=== PATIENT | female | born 1945 | race Caucasian/White ===

== ENCOUNTER → 2016-04-13 | Outpatient (REF) | payer MEDICARE, OTHER ==
[~2016-04-13] MED LIST: CALCTAB7 PO; CVS20TAB PO; ELES0.05 OU; EPIP0.3I2 IM; FIBE625T15 PO; MULTTAB PO; OCCUVITE PO; VITA100041 PO
== END ==
LOC: M LAB REF 15:04
PROVIDERS: ATTEND Nurse Practitioner Family
DX: L60.3 Nail dystrophy (principal)

== ENCOUNTER → 2017-02-07 | Outpatient (REF) | payer MEDICARE, OTHER ==
[~2017-02-07] MED LIST changes: +CYCL5TAB PO; -FIBE625T15 PO; +FIBE625T22 PO; +IBUP-1114 PO; +OMEP40CA2 PO; +PERC5TAB12 PO; +VITA-182 PO; -VITA100041 PO; +[UNRECOGNIZED DRUG - OTHER]
[2017-02-07 19:18] LABS: BACTERIA, URINE MOD AMOUNT; HYALINE CAST, URINE NONE SEEN /lpf (0-1); MICROSCOPIC EXAM PERFORMED; SQUAMOUS EPITHELIAL CELL URINE LARGE AMOUNT /hpf (SMALL AMT)
== END ==
LOC: M LAB REF 16:01
PROVIDERS: ATTEND Internal Medicine
DX: R31.9 Hematuria, unspecified (principal)

== ENCOUNTER → 2017-02-14 | Outpatient (REF) | payer OTHER ==
[2017-02-14 20:45] LABS: BACTERIA, URINE NONE SEEN; HYALINE CAST, URINE NONE SEEN /lpf (0-1); RBC, URINE NONE SEEN /hpf (0-3); SQUAMOUS EPITHELIAL CELL URINE SMALL AMOUNT /hpf (SMALL AMT); WBC, URINE 0-1 /hpf (0-3)
[2017-02-14 20:46] LABS: MICROSCOPIC EXAM PERFORMED
== END ==
LOC: M LAB REF 16:27
PROVIDERS: ATTEND Internal Medicine
DX: N39.0 Urinary tract infection, site not specified (principal)

== ENCOUNTER → 2017-05-11 | Outpatient (REF) | payer MEDICARE, OTHER ==
[2017-05-11 14:35] LABS: VITAMIN B12 LEVEL 383 PG/ML
[2017-05-11 14:36] LABS: FOLATE 19.4 NG/ML
== END ==
LOC: M LABNEURO 09:42
DX: E53.8 Deficiency of other specified B group vitamins (principal); E03.9 Hypothyroidism, unspecified
CPT/HCPCS: 82525

== ENCOUNTER → 2017-06-24 | Outpatient (REF) | payer OTHER ==
[2017-06-24 13:21] LABS: APPEARANCE, URINE CLOUDY (CLEAR); BACTERIA, URINE AUTO NEGATIVE (NEGATIVE); BILIRUBIN, URINE AUTO NEGATIVE (NEGATIVE); BLOOD, URINE BLOOD 2+ (NEGATIVE); COLOR, URINE YELLOW (YELLOW); GLUCOSE, URINE (UA) AUTO NEGATIVE (NEGATIVE); KETONE, URINE AUTO NEGATIVE (NEGATIVE); LEUKOCYTE ESTERASE, URINE AUTO NEGATIVE (NEGATIVE); NITRITE, URINE AUTO NEGATIVE (NEGATIVE); PROTEIN, URINE AUTO NEGATIVE (NEGATIVE); RBC, URINE AUTO 2 /HPF (0-3); SPECIFIC GRAVITY URINE AUTO 1.019 (1.002-1.035); SQUAMOUS EPITHELIAL CELL UR AU 11 /HPF (0-6); UROBILINOGEN, URINE AUTO 0.2 mg/dL (0.0-2.0); WBC, URINE AUTO 1 /HPF (0-3)
== END ==
LOC: M LAB REF 12:29
DX: R31.9 Hematuria, unspecified (principal)

== ENCOUNTER → 2017-07-11 | Outpatient (REF) | payer OTHER ==
[2017-07-11 17:49] LABS: ERYTHROCYTE SEDIMENTATION RATE 10 mm/hr (0-30)
[2017-07-11 18:08] LABS: RHEUMATOID FACTOR QUANT < 10.0 IU/ML (<15.0)
[2017-07-11 18:08] LABS: C REACTIVE PROTEIN QUANTITATIV 0.61 MG/DL (0.00-0.30)
[2017-07-14 00:07] LABS: CYCLIC CITRULLINATED PEPTIDE 6 units (0-19)
[2017-07-14 00:07] LABS: ANTINUCLEAR ANTIBODIES DIRECT Negative (Negative)
== END ==
LOC: M LABNEURO 16:55
DX: M25.50 Pain in unspecified joint (principal)
CPT/HCPCS: 86140

== ENCOUNTER → 2019-02-19 | Outpatient (REF) | payer MEDICARE, OTHER ==
[~2019-02-19] MED LIST changes: -CVS20TAB PO; +OMEP20TA9 PO; -OMEP40CA2 PO; +OMEP40CA97 PO
== END ==
LOC: M LAB REF 09:12
PROVIDERS: ATTEND Internal Medicine
DX: R13.10 Dysphagia, unspecified (principal)

== ENCOUNTER → 2019-02-19 | Outpatient (CLI) | payer MEDICARE, OTHER ==
[2019-02-19 19:21] LABS: BASO # 0.1 10^3/uL (0.0-0.2); BASO % 0.7 % (0.0-1.0); EOS # 0.2 10^3/uL (0.0-0.5); EOS % 2.5 % (0.0-3.0); HEMATOCRIT 43.5 % (36.0-47.0); HEMOGLOBIN 14.4 g/dl (12.0-15.5); LYMPH % 36.9 % (24.0-44.0); MEAN CORPUSCULAR HEMOGLOBIN 29.4 pg (27.0-33.0); MEAN CORPUSCULAR HGB CONC 33.1 g/dl (32.0-36.5); MEAN CORPUSCULAR VOLUME 88.8 fl (80.0-96.0); MONO # 0.9 10^3/uL (0.0-0.8); MONO % 10.8 % (0.0-5.0); NEUTROPHILS % 48.9 % (36.0-66.0); PLATELET COUNT, AUTOMATED 231 10^3/uL (150-450); WHITE BLOOD COUNT 8.1 10^3/uL (4.0-10.0)
--- NOTE | 2019-02-19 19:32 | REP ---
Chest x-ray: Two views. History: Dehydration. Pedal edema. No comparison chest x-ray. Findings: The lungs are well inflated and clear. Pleural angles are sharp. Heart is not enlarged. The thoracic aorta is tortuous. There are degenerative changes in the thoracic spine. No significant bony abnormality. There are clips in the right upper quadrant post cholecystectomy. Impression: No acute disease. Electronically Signed by Lamont Mccullough MD 02/19/2019 07:24 P
[2019-02-19 19:42] LABS: ALBUMIN 3.9 GM/DL (3.2-5.2); ALT/SGPT 26 U/L (12-78); BILIRUBIN,TOTAL 0.5 MG/DL (0.2-1.0); BLOOD UREA NITROGEN 13 MG/DL (7-18); C REACTIVE PROTEIN QUANTITATIV 0.71 MG/DL (0.00-0.30); CALCIUM LEVEL 9.1 MG/DL (8.8-10.2); CARBON DIOXIDE LEVEL 28 MEQ/L (21-32); CHLORIDE LEVEL 104 MEQ/L (98-107); CREATININE FOR GFR 0.76 MG/DL (0.55-1.30); GLOMERULAR FILTRATION RATE > 60.0 (>39); GLUCOSE, FASTING 91 MG/DL (70-100); POTASSIUM SERUM 3.7 MEQ/L (3.5-5.1); SODIUM LEVEL 139 MEQ/L (136-145); TOTAL PROTEIN 6.9 GM/DL (6.4-8.2)
[2019-02-19 20:06] LABS: ERYTHROCYTE SEDIMENTATION RATE 12 mm/hr (0-30)
== END ==
LOC: M LAB 17:58
PROVIDERS: ATTEND Physician Assistant Medical
DX: R60.9 Edema, unspecified (principal); E86.0 Dehydration

== ENCOUNTER 2019-03-17 18:41 | Inpatient (IN) | payer MEDICARE, OTHER ==
[~2019-03-17] VITALS: Ht 167.6 cm; Wt 84.3 kg
[~2019-03-17 18:41] MED LIST changes: +methylPREDNISolone INJ 40 MG/1 ML VIAL (J2920) IV SCH
[2019-03-17] MEDS ORDERED: RACEPINEPHrine 2.25 % UD INHA As Ordered ONE (18:44)
[2019-03-17] MEDS ORDERED: methylPREDNISolone INJ 125 MG/2 ML VIAL (J2930) As Ordered ONE (18:46)
[2019-03-17] MEDS ORDERED: methylPREDNISolone INJ 125 MG/2 ML VIAL (J2930) IV ONE (19:00)
[2019-03-17] MEDS ORDERED: RACEPINEPHrine 2.25 % UD INHA NEB ONE (19:00)
[2019-03-17] MEDS ORDERED: IPRATROPIUM 0.5MG/ALBUTEROL 2.5MG INH SOL UD 3ML (DUONEB)(J7620) As Ordered ONE (19:02)
[2019-03-17] MEDS ORDERED: SUCCINYLCHOLINE INJ 200 MG/10 ML VIAL (J0330) IV STA (19:04)
[2019-03-17] MEDS ORDERED: ETOMIDATE INJ 20MG/10ML VIAL IV STA (19:04)
[2019-03-17] MEDS ORDERED: PROPOFOL 1,000 MG/100 ML VIAL As Ordered ONE (19:10)
[2019-03-17] MEDS: PROPOFOL 1,000 MG in IV 1 EA IV SCH ×3 (19:21→23:00)
[2019-03-17 19:54] LABS: ALBUMIN 3.8 GM/DL (3.2-5.2); ALT/SGPT 23 U/L (12-78); BILIRUBIN,DIRECT < 0.1 MG/DL (0.0-0.2); BILIRUBIN,TOTAL 0.3 MG/DL (0.2-1.0); BLOOD UREA NITROGEN 11 MG/DL (7-18); CALCIUM LEVEL 8.6 MG/DL (8.8-10.2); CARBON DIOXIDE LEVEL 24 MEQ/L (21-32); CHLORIDE LEVEL 107 MEQ/L (98-107); CK-MB VALUE MASS 3.2 NG/ML (<3.6); CPK CREATINE PHOSPHOKINASE 126 U/L (26-192); CREATININE FOR GFR 0.86 MG/DL (0.55-1.30); GLOMERULAR FILTRATION RATE > 60.0 (>39); GLUCOSE, FASTING 128 MG/DL (70-100); MB/CK RELATIVE INDEX 2.54 (< OR =4); NT-PRO BNP 41 PG/ML (<125); POTASSIUM SERUM 2.9 MEQ/L (3.5-5.1); SODIUM LEVEL 142 MEQ/L (136-145); TOTAL PROTEIN 6.8 GM/DL (6.4-8.2); TROPONIN I < 0.02 NG/ML (< 0.10)
[2019-03-17 19:54] LABS: HEMATOCRIT 42.1 % (36.0-47.0); MEAN CORPUSCULAR HEMOGLOBIN 29.4 pg (27.0-33.0); MEAN CORPUSCULAR HGB CONC 33.3 g/dl (32.0-36.5); MEAN CORPUSCULAR VOLUME 88.4 fl (80.0-96.0); PLATELET COUNT, AUTOMATED 208 10^3/uL (150-450); RED BLOOD COUNT 4.76 10^6/uL (4.00-5.40)
[2019-03-17] MEDS ORDERED: CYCL5TAB PO (19:55)
[2019-03-17] MEDS ORDERED: FEXO180T58 PO (19:55)
[2019-03-17] MEDS ORDERED: MULT-40 PO (19:55)
[2019-03-17] MEDS ORDERED: FIBE625T PO (19:55)
[2019-03-17] MEDS ORDERED: RANI150C PO (19:55)
[2019-03-17] MEDS ORDERED: OCUVCAP2 PO (19:55)
[2019-03-17] MEDS ORDERED: EPIN1DRO OU (19:55)
[2019-03-17] MEDS ORDERED: SM LTAB5 PO (19:55)
[2019-03-17] MEDS ORDERED: EQL400CA9 PO (19:55)
[2019-03-17] MEDS ORDERED: OXYC1TAB23 PO (19:56)
[2019-03-17] MEDS ORDERED: PATIENT COMMENTS (19:58)
[2019-03-17] MEDS: IPRATROPIUM 0.5MG/ALBUTEROL 2.5MG INH SOL UD 3ML (DUONEB)(J7620) NEB SCH (20:00)
[2019-03-17] MEDS ORDERED: KCL 10MEQ/100ML SWI (KRUN) 10 MEQ in IV 1 EA IV ONE (20:00)
[2019-03-17 20:22] LABS: BASOPHILS 1 % (0-1); EOSINOPHILS 1 % (0-3); LYMPHOCYTES 52 % (16-44); MONOCYTES 8 % (0-5); NEUTROPHILS 38 % (28-66); PLATELET ESTIMATE NORMAL (NORMAL)
--- NOTE | 2019-03-17 20:22 | REPVR ---
PROCEDURE INFORMATION: Exam: XR Chest, 1 View Exam date and time: 03/17/2019 7:39 PM Age: 73 years old Clinical indication: Cough and dyspnea; Additional info: Dyspnea/cough TECHNIQUE: Imaging protocol: XR of the chest Views: 1 view. COMPARISON: CR Chest, 2 view PA, Lat 02/19/2019 7:02 PM FINDINGS: Tubes, catheters and devices: Endotracheal tube at the level of the aortic arch. Lungs: Mild left basilar atelectasis. Lungs are otherwise clear. Pleural space: Unremarkable. No pleural effusion. No pneumothorax. Heart/Mediastinum: Unremarkable. No cardiomegaly. Bones/joints: Unremarkable. IMPRESSION: No acute disease. Electronically signed by: Charan Jacobs On 03/17/2019 20:21:45 PM
[2019-03-17 23:27] VITALS: O2SAT 99
[2019-03-17] MEDS ORDERED: POTASSIUM CHLORIDE 10% LIQ 20 MEQ/15 ML UDC PO ONE (23:45)
[2019-03-17 23:48] VITALS: BP 126/66
[2019-03-17 23:51] VITALS: BP 126/66
[2019-03-18] VITALS (18 sets, daily range): BP systolic 95–148; BP diastolic 52–90; O2SAT 97
[2019-03-18] MEDS ORDERED: KCL 10MEQ/100ML SWI (KRUN) 10 MEQ in IV 1 EA IV SCH ×2
[2019-03-18 00:37] LABS: HEMATOCRIT 41.9 % (36.0-47.0); HEMOGLOBIN 13.5 g/dl (12.0-15.5); MEAN CORPUSCULAR HEMOGLOBIN 28.8 pg (27.0-33.0); MEAN CORPUSCULAR HGB CONC 32.2 g/dl (32.0-36.5); MEAN CORPUSCULAR VOLUME 89.5 fl (80.0-96.0); PLATELET COUNT, AUTOMATED 179 10^3/uL (150-450); RED BLOOD COUNT 4.68 10^6/uL (4.00-5.40); WHITE BLOOD COUNT 9.3 10^3/uL (4.0-10.0)
[2019-03-18 01:01] LABS: CALCIUM LEVEL 8.7 MG/DL (8.8-10.2); CREATININE FOR GFR 1.03 MG/DL (0.55-1.30); GLOMERULAR FILTRATION RATE 55.9 (>39); MAGNESIUM LEVEL 1.9 MG/DL (1.8-2.4); POTASSIUM SERUM 3.5 MEQ/L (3.5-5.1)
[2019-03-18] MEDS: PROPOFOL 1,000 MG in IV 1 EA IV SCH ×3 (01:07→08:21)
[2019-03-18] MEDS: IPRATROPIUM 0.5MG/ALBUTEROL 2.5MG INH SOL UD 3ML (DUONEB)(J7620) NEB SCH ×2 (02:04→08:01)
[2019-03-18 05:08] LABS: HEMATOCRIT 41.8 % (36.0-47.0); HEMOGLOBIN 13.3 g/dl (12.0-15.5); MEAN CORPUSCULAR HEMOGLOBIN 28.5 pg (27.0-33.0); MEAN CORPUSCULAR HGB CONC 31.8 g/dl (32.0-36.5); MEAN CORPUSCULAR VOLUME 89.5 fl (80.0-96.0); PLATELET COUNT, AUTOMATED 181 10^3/uL (150-450); RED BLOOD COUNT 4.67 10^6/uL (4.00-5.40); WHITE BLOOD COUNT 8.8 10^3/uL (4.0-10.0)
[2019-03-18 05:37] LABS: CALCIUM LEVEL 8.9 MG/DL (8.8-10.2); CREATININE FOR GFR 1.01 MG/DL (0.55-1.30); GLOMERULAR FILTRATION RATE 57.2 (>39); POTASSIUM SERUM 4.1 MEQ/L (3.5-5.1)
[2019-03-18 05:44] LABS: ABG pH (ARTERIAL) 7.398 UNITS (7.350-7.450)
[2019-03-18 05:47] LABS: ABG BASE EXCESS -3.3 (-2.0-2.0); ABG HCO3 20.7 MEQ/L (22.0-26.0); ABG O2 SATURATION 98.7 % (95.0-99.0); ABG PARTIAL PRESSURE CO2 34.4 mmHg (35.0-45.0); ABG STANDARD HCO3 21.7 MEQ/L (22.0-26.0); ABG TOTAL CO2 21.8 MEQ/L (23.0-31.0)
[2019-03-18] MEDS ORDERED: methylPREDNISolone INJ 40 MG/1 ML VIAL (J2920) IV SCH (06:00)
--- NOTE | 2019-03-18 06:00 | ECGEPIP ---
[facility] - ED Test Date: 2019-03-17 Pat Name: SARA HERRON Department: Room: - Gender: Female Cattle Sticker: LYSSA : [id number] Requested By: EUGENIO Donato Order Number: [id number] Reading MD: Rafa Cm Measurements Intervals [place] Rate: 101 P: 57 VT: 129 QRS: 53 QRSD: 98 T: 2 QT: 373 QTc: 486 Interpretive Statements SINUS TACHYCARDIA WITH OCCASIONAL SUPRAVENTRICULAR PREMATURE COMPLEXES BASELINE ARTIFACT AFFECTS INTERPRETATION NO PRIORS FOR COMPARISON Electronically Signed on 03-18-2019 6:00:43 EST by Rafa Cm
--- NOTE | 2019-03-18 08:27 | REP ---
Portable chest x-ray: Single view. History: Intubated patient. Comparison study: March 17, 2019. Findings: Endotracheal tube is seen in good position at the level of the transverse aorta. An NG tube enters left upper quadrant. EKG electrodes and oxygen delivery tubing are seen. The lungs are symmetrically aerated and no infiltrate is seen. Pleural angles are sharp. Heart size is normal. Pulmonary vasculature is not increased. Electronically Signed by Lamont Mccullough MD 03/18/2019 08:18 A
[2019-03-18] MEDS: ENOXAPARIN 40 MG/0.4 ML SYRINGE (J1650) SC SCH (08:29)
[2019-03-18] MEDS: PANTOPRAZOLE 40MG INJ (PROTONIX) (C9113) IV SCH (08:29)
[2019-03-18] MEDS ORDERED: CHLORHEXIDINE GLUCONATE 0.12 % 15ML UDC (PERIDEX ORAL RINSE) MT SCH (09:00)
--- NOTE | 2019-03-18 09:54 | HPE ---
DATE OF ADMISSION: 03/17/2019 CHIEF COMPLAINT: Stridor. HISTORY OF PRESENT ILLNESS: Ms. Jimenez is a 73 female who presented to the emergency department (ED) this evening with complaints of difficulty breathing after eating dinner, which was reportedly chicken and rice soup. History is somewhat limited as the patient is intubated and unable to provide the history. History is therefore obtained from the chart and other collateral information. As per ED physician, the patient had eaten dinner with chicken and rice soup and then started noticing shortness of breath and having wheezing and stridor with respiratory distress. She has a history of allergy to peppers but was very clear that she did not ingest any peppers with her dinner. She denied having any rash or any pruritic itching or urticaria. On emergency medical service (EMS) arrival, the patient was given DuoNeb treatment as well as epinephrine intramuscular (IM). In the ED, she was given Solu-Medrol as well as nebulizer treatment and initially appeared to improve. However, she then continued to complain of her throat closing and having she audible stridor and appeared to be in respiratory distress using accessory muscles for respiration. She was therefore intubated. After intubation, the patient was not noted to have any audible wheezing on examination. Also in the reported history, the patient was being evaluated for possible myasthenia gravis. She was unable to articulate clearly who was doing the evaluation or what testing was being done. She had denied any weakness that she noticed leading up to her presentation to the ED. PAST MEDICAL HISTORY: Unknown. PAST SURGICAL HISTORY: Bunionectomy. Cholecystectomy. Hysterectomy. HOME MEDICATIONS LIST: - EpiPen. - omeprazole - calcium carbonate - ibuprofen - FiberCon - vitamin D3 - cyclobenzaprine ALLERGIES: Peppers. SOCIAL HISTORY: Unknown. FAMILY HISTORY: Unknown. PHYSICAL EXAMINATION: Temperature 98.4, pulse 105, respirations 14, blood pressure 141/77, O2 sat 97% on ventilator at 40% FiO2. GENERAL: The patient is intubated and sedated. Appears comfortable. Is arousable to noxious stimuli and following commands intermittently. HEENT: Normocephalic, atraumatic. Pupils are reactive to light bilaterally. Moist mucous membranes. Neck is supple. Trachea is midline. There is no palpable cervical adenopathy. Cardiac: Tachycardiac, regular rate and rhythm. Normal S1, S2. Unable to appreciate any murmurs. Pulmonary: Coarse ventilated breath sounds bilaterally but no wheezing, rales or rhonchi. Abdomen is Soft, nontender, nondistended. No palpable masses. Extremities: No lower extremity edema noted bilaterally. LABS: WBC 11.0, hemoglobin 14.0, platelets 208. Chemistry: Sodium is 142, potassium 2.9, chloride 107, bicarb 24, BUN 11, creatinine 0.86, glucose is 198. ABG on admission: pH 7.411, pCO2 of 42.5, pO2 of 304. Repeat ABG pH 7.366, pCO2 of 43.4, pO2 of 104. Chest x-ray: ET tube in good position. There is mild prominence of interstitial markings. There is atelectasis in the left base. ASSESSMENT/PLAN: Ms. Jimenez is a 73-year-old female with a history of allergies who presented to the ED with acute respiratory distress with audible stridor and wheezing. She was given IM epinephrine by EMS, and in the ED was given racemic epi as well as nebulizer treatment and Solu-Medrol. She did not have significant improvement and was complaining of sensation of her throat closing off and being tight. She continues to have audible stridor and so was intubated in the ED. During intubation, she was not noted to have any edema of her tongue, in her lips or in any laryngeal edema. Post-intubation, she was not noted to have any wheezing in her lungs. 1. Acute respiratory failure with stridor. There was some concern for possible laryngeal edema, initially, however there is no edema noted with intubation. Suspect the patient likely had paradoxical vocal cord dysfunction or paralysis causing her audible stridor which has now resolved with the intubation. - Will continue with Solu-Medrol for now at 40 mg every 8h and continue with DuoNebs. - The patient did not have any hypotension. No desaturation. No rashes or hives. No nausea or vomiting to suggest an anaphylactic response. Her ABG on admission shows no V/Q mismatch and so a severe asthma exacerbation to the point where she would require intubation is unlikely. The patient also has no wheezing noted on exam currently. - Will continue with mechanical ventilation with pressure ventilated volume control (PRVC) with settings of 450/14/40 and 5. - Continue with vent bundle care with head of bed elevation and chlorhexidine mouthwash. - Continue with daily ABGs and chest x-rays while intubated. - Continue with propofol for sedation. Will place a sedation vacation in the a.m. and a weaning trial for extubation. 2. Hypokalemia: Will check magnesium and replete potassium supplements and followup with repeat electrolytes and replete as needed. 3. Myasthenia gravis- hx of probable myasthenia gravis, was awaiting evaluation by neurology. Unclear if her acute respiratory issue is related. Reportedly denied to ED physician any weakness prior to her presentation deep venous thrombosis (DVT) prophylaxis: Lovenox. Gastrointestinal (GI) prophylaxis: Pantoprazole FULL CODE. Total critical care time spent not including procedures approximately 1 hour and 30 minutes. MTDD
[2019-03-18] MEDS ORDERED: IPRATROPIUM 0.5MG/ALBUTEROL 2.5MG INH SOL UD 3ML (DUONEB)(J7620) NEB PRN (13:15)
[2019-03-18] MEDS: PYRIDOSTIGMINE 60 MG TAB PO SCH ×2 (14:46→21:16)
--- NOTE | 2019-03-18 17:36 | IPN ---
DATE: 03/18/2019 Emily was transferred to the hospitalist service by Dr. Strong. I assumed her care today while patient was in the intensive care unit (ICU). She is admitted with stridor, was felt to have laryngeal edema. Intubation was performed in the emergency room. No edema of the upper airway was seen. Stridor was felt to be due to vocal cord spasm. She was intubated overnight. Prior to extubation, she was tested for cuff leak and this also confirmed a presumed lack of any airway edema. Patient is being evaluated for possible myesthesia gravis. Her outpatient provider ordered acetylcholine receptor antibody panel. It did return positive on 02/19/2019 with acetylcholine receptor antibody of 15 and a receptor blocking antibody of 33%. She has an appointment to see Dr. Brown, who is her neurologist, but it is not for several weeks. SURGICAL HISTORY: 1. Cholecystectomy. 2. Hysterectomy. 3. Bunionectomy. 4. Last colonoscopy was 09/2015, sessile serrated polyp removed. PAST MEDICAL HISTORY: Significant for: 1. Degenerative disc disease, apparently has a herniated cervical disc. She is on cyclobenzaprine and oxycodone as an outpatient, as well as ibuprofen. 2. History of gastroesophageal reflux, for which she is on omeprazole and ranitidine. 3. Vitamin D deficiency. PHYSICAL EXAMINATION: 131/90, pulse 90, respiratory rate 20, 100% room air oxygen saturation. Alert and conversant, no distress. Speech is fluent, not particularly dysarthric. No facial droop or weakness. LUNGS: Clear. HEART: Without murmur. ABDOMEN: Soft. Without masses. No peripheral edema. Labs were reviewed. IMPRESSION: Stridor, probably from myesthesia gravis, which is yet to be formally diagnosed, typically does not cause respiratory difficulty due to vocal cord issues. There have been case reports of vocal cord paralysis of unilateral and bilateral in patients with myesthesia gravis. Therefore, it is conceivable her current stridor could be related to this. I will put a consultation in for neurology to see this patient. She is known to their group and has an appointment, but it is not for several weeks, and with the acute event causing intubation, would like to be seen by neurology during this hospitalization. Consultation has been placed with Dr. Shankar.
[2019-03-18] MEDS ORDERED: ETOMIDATE INJ 20MG/10ML VIAL ONE (18:12)
[2019-03-18] MEDS ORDERED: SUCCINYLCHOLINE 100 MG/5 ML SYRINGE (J0330) ONE (18:12)
[2019-03-18] MEDS: methylPREDNISolone INJ 40 MG/1 ML VIAL (J2920) IV SCH (18:37)
[2019-03-19] VITALS (7 sets, daily range): BP systolic 124–163; BP diastolic 60–96
[2019-03-19 04:55] LABS: HEMATOCRIT 41.2 % (36.0-47.0); HEMOGLOBIN 13.3 g/dl (12.0-15.5); MEAN CORPUSCULAR HEMOGLOBIN 28.9 pg (27.0-33.0); MEAN CORPUSCULAR HGB CONC 32.3 g/dl (32.0-36.5); MEAN CORPUSCULAR VOLUME 89.6 fl (80.0-96.0); PLATELET COUNT, AUTOMATED 179 10^3/uL (150-450); WHITE BLOOD COUNT 17.2 10^3/uL (4.0-10.0)
[2019-03-19 05:12] LABS: BLOOD UREA NITROGEN 16 MG/DL (7-18); CALCIUM LEVEL 9.1 MG/DL (8.8-10.2); CARBON DIOXIDE LEVEL 26 MEQ/L (21-32); CHLORIDE LEVEL 110 MEQ/L (98-107); CREATININE FOR GFR 0.68 MG/DL (0.55-1.30); GLOMERULAR FILTRATION RATE > 60.0 (>39); GLUCOSE, FASTING 124 MG/DL (70-100); POTASSIUM SERUM 4.3 MEQ/L (3.5-5.1); SODIUM LEVEL 143 MEQ/L (136-145)
[2019-03-19] MEDS: methylPREDNISolone INJ 40 MG/1 ML VIAL (J2920) IV SCH (06:50)
[2019-03-19] MEDS: PYRIDOSTIGMINE 60 MG TAB PO SCH ×3 (06:50→21:33)
[2019-03-19] MEDS: PANTOPRAZOLE 40MG INJ (PROTONIX) (C9113) IV SCH (08:31)
[2019-03-19] MEDS: ENOXAPARIN 40 MG/0.4 ML SYRINGE (J1650) SC SCH (08:31)
--- NOTE | 2019-03-19 08:56 | CR ---
NEUROLOGY CONSULTATION DATE OF CONSULTATION: 03/19/2019 DATE OF : 1945 REFERRING PROVIDER: Dr. Guevara Ward REASON FOR CONSULTATION: Newly diagnosed myasthenia gravis. Emily Jimenez is a 73-year-old female with a recent diagnosis of myasthenia gravis acetylcholine receptor antibody positive. The patient was having difficulty breathing and having difficulty swallowing. The patient was thought to have had an asthma attack. She was given Solu-Medrol in the ER. The patient then needed to be intubated due to respiratory compromise. The patient ended up being extubated. She was noted to have audible stridor. She has been complaining a few days of dysphagia. Usually occurring more towards the end of the evening. The patient denies any diplopia, but did have one incidence of ptosis. She denies any fatigue with chewing, but states that food does get caught up or in her oral cavity between her gums and her teeth and it takes her a longer time to chew and swallow. The patient denies any weakness in the arms and legs. She will need a chest CT to evaluate for a thymoma. The patient otherwise has already been started on Solu-Medrol. She was given 125 mg IV and then maintained on 40 mg IV Solu-Medrol twice a day. We can go ahead and switch her to prednisone 40 mg daily. The patient has already been started on pyridostigmine 60 mg by mouth three times a day. The patient seems to be tolerating the medicine well so far. She notices an improvement in her tone of her voice, but states she still has some difficulty with her swallowing function. PAST MEDICAL HISTORY: Exercise induced asthma. Cervical spondylosis with chronic cervicalgia. Gastroesophageal reflux disease (GERD). Vitamin D deficiency. PAST SURGICAL HISTORY: Bunionectomy. Cholecystectomy. Hysterectomy. HOME MEDICATIONS: - omeprazole - calcium carbonate - ibuprofen - FiberCon - vitamin D3 - cyclobenzaprine ALLERGIES: Peppers. SOCIAL HISTORY: The patient denies the use of any tobacco, alcohol or illicit drugs. FAMILY HISTORY: Noncontributory. PHYSICAL EXAMINATION: Blood pressure 141/77, pulse rate is 106, respiratory rate is 14, temperature is 98.4 degrees Fahrenheit. Pupils are 3 mm, round and reactive to light. Extraocular movements are intact in all directions without nystagmus. End gaze light diplopia is noted after holding gaze for some time towards horizontal directions. There is no ptosis. There does not appear to be any significant tongue weakness at the present time. Palate elevates symmetrically. Tongue is midline. No weakness of sternocleidomastoids bilaterally. Neck flexion weakness is present, grade 5-. Deltoid and biceps strength are 5/5. Triceps strength is 4+. Iliopsoas strength is 5-. Quadriceps are 5/5, 2+, anterior 5/5. Sensory is intact to light touch in all four extremities with slight decreased light touch in the left toe compared to the right. Deep tendon reflexes are 3's throughout. Absent Babinski signs. Coordination normal finger to nose without any signs of ataxia or dysmetria. Gait deferred. ASSESSMENT: 1. Seropositive acetylcholine receptor myasthenia gravis, rule out thymoma. PLAN: 1. Obtain chest CT with contrast, rule out thymoma. 2. Continue pyridostigmine 60 mg by mouth three times a day. 3. Switch to oral prednisone 40 mg daily. 4. Followup in the [facility] with neurologist Dr. Kristi Brown as scheduled for next Tuesday. 5. Recommend physical therapy/occupational therapy (PT/OT) evaluation.
--- NOTE | 2019-03-19 10:24 | IPN ---
DATE: 03/19/2019 Emily feels significantly improved since starting the Mestinon. She says "I have my tongue control back." She is enunciating better and is swallowing better. She was admitted with stridor, respiratory difficulty. Initially it was felt to be due to angioedema, but appears to have been a vocal cord problem, possibly related to newly diagnosed myasthenia gravis. She was seen yesterday by Dr. Shankar. Appreciate his consultation. He agrees with the diagnosis and recommended a CT scan of the chest to rule out thymoma and advising Mestinon 60 mg three times a day and oral prednisone 40 mg daily. Physical, occupational and speech therapy consulted. Followup with Dr. Brown as an outpatient, which is already scheduled for next Tuesday. PHYSICAL EXAMINATION: Afebrile, vital signs stable. She is alert and conversant in no distress. Speech is clear and fluent. No facial droop or weakness. No fasciculations of the tongue. Lungs clear. Heart regular rhythm. Abdomen soft, nontender. No peripheral edema. Normal strength in the arms and legs. LABORATORIES: White 17,000 on steroids, hemoglobin 13, platelets 179. Sodium 143, potassium 4.3, BUN 16, creatinine 0.6, glucose 214. IMPRESSION: 1. Acute respiratory failure secondary to vocal cord dysfunction, possibly related to myasthenia gravis (there have been case reports of myasthenia gravis causing unilateral or bilateral vocal cord paralysis, which I think is probably what happened to her). She has no respiratory problems now, and I think she can safely be moved to the floor. There is no stridor and her speech is fluent without dyspnea. 2. Myasthenia gravis. Will change to oral prednisone. Continue with Mestinon. Speech therapy has been ordered. Will get a CT scan of the chest with contrast to evaluate for thymoma. I expect the patient can be discharged tomorrow. She has an appointment next Tuesday with Dr. Brown at [facility]. I spent a lot of time discussing myasthenia gravis with the patient and discussed precautions concerning potential for medications to worsen myasthenia gravis or precipitate myasthenia crisis, and the importance of followup with neurology as well as her primary care provider, and directed her towards the [employer] website, which has excellent information for patient's and providers.
[2019-03-19] MEDS ORDERED: ISOVUE-370 76% 100ML VIAL (Q9967) As Ordered ONE (10:39)
[2019-03-19] MEDS ORDERED: KCL 20MEQ in NS 1000ML 1,000 ML IV SCH (11:00)
--- NOTE | 2019-03-19 11:26 | CCN ---
CRITICAL CARE PROGRESS NOTE DATE: 03/18/2019 The patient was seen and examined this morning during bedside rounds. The patient had no events noted overnight. She was on propofol for sedation, which was held this morning for a weaning trial. Off of propofol patient was awake and alert and following commands appropriately. She was placed on a weaning trial on pressure support which she tolerated well. The patient also had a cuff leak checked and she did have appropriate cuff leak and was therefore extubated successfully earlier this morning. PHYSICAL EXAMINATION: Temperature afebrile, pulse 85, respirations 14, blood pressure 142/70, O2 sat 97% on 40% FiO2. GENERAL: Patient was intubated, not sedated. Appeared awake and alert and following commands appropriately. HEENT: Normocephalic, atraumatic. Pupils reactive to light bilaterally. Moist mucous membranes. NECK: Supple. Trachea is midline. There is no palpable cervical adenopathy. There was no edema noted of her lips or tongue. CARDIAC: Regular rate and rhythm. Normal S1-S2. Unable to appreciate murmurs. PULMONARY: Clear to auscultation bilaterally with no wheezing, rales or rhonchi. ABDOMEN: Soft, nontender, nondistended. No palpable masses. EXTREMITIES: No lower extremity edema noted bilaterally. LABORATORIES: WBC 8.8, hemoglobin 13.3, platelets are 187. Chemistry: Sodium is 140, potassium 4.1, chloride is 107, bicarb is 21, BUN 14, creatinine 1.01, glucose is 174. ABG pH is 7.398, pCO2 of 34.4, pO2 of 123.0. Respiratory panel was negative. Chest x-ray showed ET tube and OG tube in good position with no focal opacities or infiltrates. ASSESSMENT/PLAN: Ms. Jimenez is a 73-year-old female with a history of allergies and suspected myasthenia gravis who presented initially with complaints of acute respiratory distress with audible stridor. The patient was treated by IM epinephrine as well as racemic epinephrine nebulizer and Solu-Medrol with minimal improvement in symptoms in the ED and she was intubated for her acute respiratory distress and stridor. Post intubation the patient was not noted to have any wheezing or audible stridor. During intubation she was not reported to have any laryngeal edema noted and no edema in her uvula, tongue or lips. 1. Acute respiratory failure with stridor. There was concern for possible laryngeal edema initially; however, during intubation she was not found to have any edema in her posterior pharynx, larynx, her lips or tongue. There was also concern given her history for possible anaphylaxis. However, the patient did not have any desaturation, no rashes or hives and no hypotension, no nausea or vomiting. Nothing to suggest an acute anaphylactic response and her symptoms did not improve with epinephrine which you would expect with anaphylaxis. She does not have any wheezing this morning on exam either and no previous history of asthma. On the ventilator the patient also does not appear to have any significant obstruction, which would be consistent with any obstructive airways disease. - Suspect patient's stridor and respiratory distress was due to paradoxical vocal cord motion or vocal cord paralysis. She did have a cuff leak checked this morning and did show appropriate cuff leak and she did tolerate a weaning trial this morning on the ventilator and so she was extubated successfully. Post extubation she did not have any stridor noted with auscultation. - Continue with oxygen supplementation and wean down as tolerated. - The patient has a history of probable myasthenia gravis. Has been awaiting evaluation with neurology. It is unclear if her acute respiratory issue is related to her myasthenia gravis, although reportedly it can cause some vocal cord paralysis. Will check vital capacity then to monitor given her history of myasthenia. 2. Mild hypokalemia. Improved after supplementation. Will continue monitor her electrolytes and replete as needed. Deep vein thrombosis (DVT) prophylaxis with Lovenox. Gastrointestinal (GI) prophylaxis with pantoprazole. FULL CODE. Total critical care spent, not including procedures, approximately 50 minutes. Please do not hesitate call if any further questions or concerns.
--- NOTE | 2019-03-19 13:05 | REP ---
CT chest with IV contrast: History: Myasthenia. Rule out thymoma. No comparison chest CT. CT contrast dose: 75 mL of intravenous Isovue 370. CT findings: Preliminary digital supervisor farm equipment maintenance radiograph shows clips in right upper quadrant of the abdomen. There is no evidence of anterior mediastinal mass to suggest thymoma. No other mediastinal mass or adenopathy is appreciated. No pleural or pericardial effusion is seen. Normal adrenals are noted. There is a hepatic cyst and a hepatic granuloma noted incidentally. This cyst measures 2.3 cm in greatest diameter. There are actually scattered granulomatous calcifications in the liver and spleen. There are small cortical cysts in each kidney. Clips of the gallbladder fossa. No extrathoracic mass is seen. No pleural or pericardial effusion noted. The lung jorgensen are free of infiltrate, mass, or significant pulmonary nodule. Impression: No active cardiopulmonary disease. No evidence of mediastinal mass. Electronically Signed by Lamont Mccullough MD 03/19/2019 01:24 P
[2019-03-20] MEDS: PYRIDOSTIGMINE 60 MG TAB PO SCH ×3 (05:18→21:03)
[2019-03-20 06:00] VITALS: BP 136/76
[2019-03-20 06:17] LABS: HEMATOCRIT 39.1 % (36.0-47.0); HEMOGLOBIN 12.8 g/dl (12.0-15.5); MEAN CORPUSCULAR HEMOGLOBIN 29.3 pg (27.0-33.0); MEAN CORPUSCULAR HGB CONC 32.7 g/dl (32.0-36.5); MEAN CORPUSCULAR VOLUME 89.5 fl (80.0-96.0); PLATELET COUNT, AUTOMATED 161 10^3/uL (150-450); RED BLOOD COUNT 4.37 10^6/uL (4.00-5.40); WHITE BLOOD COUNT 13.3 10^3/uL (4.0-10.0)
[2019-03-20 06:35] LABS: BLOOD UREA NITROGEN 15 MG/DL (7-18); CALCIUM LEVEL 8.7 MG/DL (8.8-10.2); CARBON DIOXIDE LEVEL 27 MEQ/L (21-32); CHLORIDE LEVEL 106 MEQ/L (98-107); GLOMERULAR FILTRATION RATE > 60.0 (>39); GLUCOSE, FASTING 82 MG/DL (70-100); POTASSIUM SERUM 3.9 MEQ/L (3.5-5.1); SODIUM LEVEL 140 MEQ/L (136-145)
[2019-03-20] MEDS: predniSONE 20 MG TAB PO SCH (09:40)
[2019-03-20] MEDS: PANTOPRAZOLE 40MG TAB (PROTONIX) PO SCH (09:40)
[2019-03-20] MEDS: ENOXAPARIN 40 MG/0.4 ML SYRINGE (J1650) SC SCH (09:40)
[2019-03-20] MEDS ORDERED: VARIBAR PUDDING 40% w/v 230ML TUBE As Ordered ONE (10:15)
[2019-03-20] MEDS ORDERED: BARIUM SULFATE 700 MG TABLET (E-Z-DISK) As Ordered ONE (10:16)
[2019-03-20] MEDS ORDERED: VARIBAR NECTAR 40% w/v 240ML SUSP BTL As Ordered ONE (10:16)
[2019-03-20] MEDS ORDERED: E-Z-PAQUE 96% w/w SUSP 176GM BTL As Ordered ONE (10:16)
--- NOTE | 2019-03-20 11:06 | IPNPDOC ---
Subjective Date Seen The patient was seen on 03/20/19. Subjective Chief Complaint/HPI difficulty swallowing Gastrointestinal: Reports: Other Symptoms (dysphagia) Assessment /Plan Assessment 1. myasthenia gravis - continue mestinon, oral steroids. - PROMOTIONS SPECIALIST working with her, modified barium swallow ordered for today. - CT chest negative for thymoma. - outpatient appointment with neurology on 03/[address] Brown at [facility]. 2. acute respiratory failure secondary to vocal cord dysfunction (resolved) - s/p extubation, no respiratory problems now. - no stridor, speech fluent without dyspnea. 3. DVT ppx - lovenox. Plan/VTE VTE Prophylaxis Ordered?: Yes VS, I&O, 24H, Fishbone Vital Signs/I&O Vital Signs Date Time Temp Pulse Resp B/P (MAP) Pulse Ox O2 Delivery O2 Flow Rate FiO2 03/20/19 06:00 97.8 80 16 136/76 (96) 96 Room Air 03/18/19 08:28 40 03/17/19 19:21 40.0 I&O- Last 24 Hours up to 6 AM 03/20/19 05:59 Intake Total 2340 ml Output Total 1185 ml Balance 1155 ml Laboratory Data 24H LABS Laboratory Tests 2 03/20/19 05:20: Nucleated Red Blood Cells % (auto) 0.0, Anion Gap 7L, Glomerular Filtration Rate > 60.0, Calcium Level 8.7L CBC/BMP Laboratory Tests 03/20/19 05:20 Microbiology Microbiology 03/18/19 Respiratory Virus Panel (PCR) ([facility]) - Final, Complete FARRAH MORGAN MD Mar 20, 2019 11:06
[2019-03-20 14:00] VITALS: BP 141/83
--- NOTE | 2019-03-20 18:25 | REP ---
COOKIE SWALLOW The procedure was performed under the direct supervision of Dr. Mccullough. The procedure was performed with Natty Segundo from speech pathology present. 5 ml aliquots of thin, pudding, mixed fruit, nectar and soft consistency barium was administered. There is no evidence of penetration or aspiration. The detailed report of this examination will be provided by speech pathology. 2.1 minutes of fluoroscopy time was utilized for this procedure. Electronically Signed by BRIAN Knowles 03/20/2019 04:03 P Electronically Signed by Lamont Mccullough MD 03/20/2019 06:17 P
[2019-03-20] MEDS ORDERED: guaiFENesin ER 600 MG TAB PO SCH (21:00)
[2019-03-20] MEDS ORDERED: FLUTICASONE PROP 0.05% NASAL SPRAY 16 GM (FLONASE) NARES PRN (21:30)
[2019-03-20 22:00] VITALS: BP 143/78
[2019-03-21] MEDS: PYRIDOSTIGMINE 60 MG TAB PO SCH ×2 (05:49→14:19)
[2019-03-21 06:00] VITALS: BP 146/84
[2019-03-21 06:16] LABS: HEMATOCRIT 43.4 % (36.0-47.0); HEMOGLOBIN 14.4 g/dl (12.0-15.5); MEAN CORPUSCULAR HEMOGLOBIN 29.1 pg (27.0-33.0); MEAN CORPUSCULAR HGB CONC 33.2 g/dl (32.0-36.5); MEAN CORPUSCULAR VOLUME 87.7 fl (80.0-96.0); PLATELET COUNT, AUTOMATED 187 10^3/uL (150-450); RED BLOOD COUNT 4.95 10^6/uL (4.00-5.40)
[2019-03-21 06:40] LABS: BLOOD UREA NITROGEN 11 MG/DL (7-18); CALCIUM LEVEL 8.8 MG/DL (8.8-10.2); CARBON DIOXIDE LEVEL 27 MEQ/L (21-32); CHLORIDE LEVEL 103 MEQ/L (98-107); GLOMERULAR FILTRATION RATE > 60.0 (>39); GLUCOSE, FASTING 93 MG/DL (70-100); POTASSIUM SERUM 3.3 MEQ/L (3.5-5.1); SODIUM LEVEL 140 MEQ/L (136-145)
[2019-03-21] MEDS ORDERED: guaiFENesin ER 600 MG TAB PO PRN (09:00)
[2019-03-21] MEDS: ENOXAPARIN 40 MG/0.4 ML SYRINGE (J1650) SC SCH (09:00)
[2019-03-21] MEDS: PANTOPRAZOLE 40MG TAB (PROTONIX) PO SCH (09:37)
[2019-03-21] MEDS: predniSONE 20 MG TAB PO SCH (09:37)
[2019-03-21] MEDS ORDERED: guaiFENesin SYRUP 200 MG/10 ML UDC PO PRN (11:00)
[2019-03-21] MEDS ORDERED: MEST60TA PO (13:05)
[2019-03-21] MEDS ORDERED: GUAI100S51 PO (13:05)
[2019-03-21] MEDS ORDERED: PRED10PA2 PO (13:05)
[2019-03-21] MEDS ORDERED: ALBU83IN INH ×2 (13:05→15:33)
--- NOTE | 2019-03-21 13:07 | DS.PDOC ---
Discharge Summary General Date of Admission Mar 17, 2019 at 22:15 Date of Discharge 03/21/2019 Attending Physician: FARRAH MORGAN MD Discharge Summary PROCEDURES PERFORMED DURING STAY: [None]. ADMITTING DIAGNOSES: 1. Myasthenia gravis DISCHARGE DIAGNOSES: 1. Myasthenia gravis COMPLICATIONS/CHIEF COMPLAINT: Respiratory Distress. HISTORY OF PRESENT ILLNESS: 73 female PMHx recently diagnosed MG who presented to the ED with complaints of shortness of breath with stridor/wheezing. Patient initially thought to be having an asthma attack, tx with IV steroids and emergently intubated in the ED and admitted to MICU. Patient symptoms thought to be due to paradoxical vocal cord paralysis, no laryngeal edema or signs of angioedema noted during intubation. Patient was subsequently extubated the following morning. Seen by neurology, started on pyridostigmine and steroids. Patient noted a significant improvement in her symptoms. CT chest was negative for thymoma. Patient was seen and evaluated by PRODUCTION CHECKER, has been tolerating her diet with minimal difficulty. Patient has been cleared for discharge home with outpatient follow up with neurology Dr. Berry on 03/30/19. Patient to continue pyridostigmine and steroid taper. HOSPITAL COURSE: as above. DISCHARGE MEDICATIONS: Please see below. ALLERGIES: Please see below. PHYSICAL EXAMINATION ON DISCHARGE: VITAL SIGNS: Please see below. general: awake, alert, NAD HEENT: NCAT, anicteric sclera, PERRLA neck: supple, no JVD, thyromegaly Lungs: CTA b/l, no wheezes, rales, rhonchi cardio: N S1S2, regular, no murmurs, rubs, gallops abdm: NT/ND, positive bowel sounds x 4 extrm: no cyanosis, clubbing, edema neuro: AAO x 3, motor 5/5, sensory grossly intact psych: calm, cooperative, normal affect LABORATORY DATA: Please see below. IMAGING: CT chest: Impression: No active cardiopulmonary disease. No evidence of mediastinal mass. PROGNOSIS: stable ACTIVITY: as tolerated DIET: as tolerated DISCHARGE PLAN: home DISPOSITION: home DISCHARGE INSTRUCTIONS: 1. Please follow up with neurology Dr. Berry on 03/30/2019 at [facility]. DISCHARGE CONDITION: Stable TIME SPENT ON DISCHARGE: Greater than 30 minutes. Vital Signs/I&Os Vital Signs Date Time Temp Pulse Resp B/P (MAP) Pulse Ox O2 Delivery O2 Flow Rate FiO2 1/8/20 06:00 98.9 101 18 146/84 (104) 94 Room Air 03/18/19 08:28 40 03/17/19 19:21 40.0 I&O- Last 24 Hours up to 6 AM 03/21/19 06:00 Intake Total 2190 ml Output Total 1700 ml Balance 490 ml Laboratory Data Labs 24H Laboratory Tests 2 03/21/19 05:20: Nucleated Red Blood Cells % (auto) 0.0, Anion Gap 10, Glomerular Filtration Rate > 60.0, Calcium Level 8.8 CBC/BMP Laboratory Tests 03/21/19 05:20 Microbiology Microbiology 03/21/19 Stool Occult Blood (DANO) - Final, Complete 03/18/19 Respiratory Virus Panel (PCR) (DANO) - Final, Complete Discharge Medications Scheduled C,E,Zinc,Copper 24/Om3/Lut/Carol (Ocuvite Adult 50 Plus Softgel) 1 Each Capsule, 1 CAP PO DAILY, (Reported) Calcium Carbonate (Calcium) 600 Mg Tab, 600 MG PO DAILY, (Reported) Calcium Polycarbophil (Fibercon) 625 Mg Tablet, 625 MG PO 1XWK, (Reported) Cholecalciferol (Vitamin D3) (Vitamin D3) 400 Unit Capsule, 400 UNIT PO DAILY, (Reported) Epinastine HCl (Epinastine HCl) 0.05% 5ML Drops, 1-2 DROP OU BID, (Reported) Multivitamin (Multivitamins) 1 Each Tablet, 1 TAB PO DAILY, (Reported) Omeprazole (Omeprazole) 20 Mg Tab, 20 MG PO DAILY, (Reported) Prednisone (Prednisone) 10 Mg Tab.ds.pk, 10 MG PO DAILY Take 2 TABS by mouth daily for 2 days followed by 1 TAB by mouth daily for 2 days then stop. Pyridostigmine Haywood (Mestinon) 60 Mg Tablet, 60 MG PO Q8H Ranitidine HCl (Ranitidine HCl) 150 Mg Capsule, 1 CAP PO BID, (Reported) Scheduled PRN Albuterol Sulf (Albuterol Sulfate) 2.5 Mg/3 Ml Vial.neb, 2.5 MG INH ASDIRECTED PRN for WHEEZING Cyclobenzaprine HCl (Cyclobenzaprine HCl) 5 Mg Tablet, 5 MG PO Q8H PRN for PAIN, (Reported) Epinephrine (Epipen 2-Efren) 0.3 Mg/0.3 Ml Inj, 0.3 MG IM ASDIRECTED PRN for ANAPHYLAXID, (Reported) Fexofenadine HCl (Fexofenadine HCl) 180 Mg Tablet, 180 MG PO DAILY PRN for allergy symptoms, (Reported) Guaifenesin (Guaifenesin) 100 Mg/5 Ml Liquid, 10 ML PO Q4HP PRN for COUGH Ibuprofen (Ibuprofen) 400 Mg Tab, 400 MG PO PRN PRN for pain, (Reported) Loratadine (Loratadine) 10 Mg Tab.rapdis, 10 MG PO DAILY PRN for allergy s ymptoms, (Reported) Oxycodone HCl/Acetaminophen (Oxycodone-Acetaminophen 5-325) 1 Each Tablet, 1 TAB PO Q6H PRN for pain, (Reported) Miscellaneous Medications [Patient Comments] , (Reported) UNABLE TO OBTAIN INFORMATION REGARDING MEDICATIONS. UNABLE TO CONTACT INSURANCE COMPANY FOR VERIFICATION AT THIS TIME. Allergies Coded Allergies: PEPPERS (Verified Allergy, Unknown, 10/11/16) FARRAH MORGAN MD Mar 21, 2019 13:07
[2019-03-21 14:00] VITALS: BP 153/88
[2019-03-21] MEDS ORDERED: VENTAER INH (15:57)
[2019-03-22] MEDS ORDERED: PRED10TA2 PO (17:56)
[2019-03-22] MEDS ORDERED: VENTAER INH (17:56)
[2019-03-22] MEDS ORDERED: MEST60TA PO (17:56)
== END 2019-03-21 16:05 | disposition home or self-care (01) | DRG 208 ==
LOC: M ED 18:41 → M ED INP 22:15 → ENRESERVDT 22:55 → ENRESERVTM 22:55 → M ICU 23:30 → M MSPAV 03-19 11:20
PROVIDERS: ADMIT Internal Medicine Pulmonary Disease; ATTEND Internal Medicine
PROC: 5A1935Z Respiratory Ventilation, Less than 24 Consecutive Hours (ICD-10-PCS; principal; 2019-03-17)
DX: J96.00 Acute respiratory failure, unspecified whether with hypoxia or hypercapnia (principal); G70.00 Myasthenia gravis without (acute) exacerbation; Z90.49 Acquired absence of other specified parts of digestive tract; Z90.79 Acquired absence of other genital organ(s); Z79.899 Other long term (current) drug therapy; Z91.018 Allergy to other foods; E87.6 Hypokalemia; K21.9 Gastro-esophageal reflux disease without esophagitis; M50.20 Other cervical disc displacement, unspecified cervical region; J45.909 Unspecified asthma, uncomplicated; E55.9 Vitamin D deficiency, unspecified; J38.00 Paralysis of vocal cords and larynx, unspecified

== ENCOUNTER 2019-03-22 14:09 | Inpatient (IN) | payer MEDICARE, OTHER ==
[~2019-03-22] VITALS: Ht 162.6 cm; Wt 77.0 kg
[~2019-03-22 14:09] MED LIST changes: +ALBU83IN INH; +EPIN1DRO OU; +EQL400CA9 PO; +FEXO180T58 PO; +FIBE625T PO; +GUAI100S51 PO; +MEST60TA PO; +MULT-40 PO; +OCUVCAP2 PO; +OXYC1TAB23 PO; +PATIENT COMMENTS; +PRED10PA2 PO; +RANI150C PO; +SM LTAB5 PO; +VENTAER INH; -methylPREDNISolone INJ 40 MG/1 ML VIAL (J2920) IV SCH
[2019-03-22 15:21] LABS: VENOUS BASE EXCESS 1.3 (-2.0-2.0); VENOUS HCO3 25.1 MEQ/L (23.0-27.0); VENOUS O2 SATURATION 93.7 % (60.0-80.0); VENOUS PARTIAL PRESSURE CO2 37.3 mmHg (38.0-50.0); VENOUS PARTIAL PRESSURE O2 65.5 mmHg (30.0-50.0); VENOUS PH 7.446 UNITS (7.330-7.430); VENOUS STANDARD HCO3 25.5 MEQ/L; VENOUS TOTAL CO2 26.3 MEQ/L (24.0-28.0)
[2019-03-22 15:27] LABS: BASO % 0.3 % (0.0-1.0); EOS % 0.1 % (0.0-3.0); HEMATOCRIT 44.1 % (36.0-47.0); LYMPH # 1.4 10^3/uL (1.5-5.0); LYMPH % 12.4 % (24.0-44.0); MEAN CORPUSCULAR HEMOGLOBIN 29.5 pg (27.0-33.0); MEAN CORPUSCULAR VOLUME 86.6 fl (80.0-96.0); MONO # 0.7 10^3/uL (0.0-0.8); MONO % 6.3 % (0.0-5.0); NEUTROPHILS # 9.2 10^3/uL (1.5-8.5); NEUTROPHILS % 80.4 % (36.0-66.0); PLATELET COUNT, AUTOMATED 202 10^3/uL (150-450); RED BLOOD COUNT 5.09 10^6/uL (4.00-5.40); WHITE BLOOD COUNT 11.5 10^3/uL (4.0-10.0)
--- NOTE | 2019-03-22 15:58 | REP ---
CHEST, SINGLE VIEW: There is no evidence of acute infiltrate. No pleural effusion is seen. The heart is normal in size. The mediastinal silhouette is unremarkable. The visualized osseous structures are intact. There is calcification and tortuosity of the thoracic aorta. IMPRESSION: No acute pulmonary disease. Electronically Signed by Larry Tejeda MD 03/22/2019 05:45 P
[2019-03-22] MEDS ORDERED: IPRATROPIUM 0.5MG/ALBUTEROL 2.5MG INH SOL UD 3ML (DUONEB)(J7620) NEB ONE (16:00)
[2019-03-22 16:03] LABS: ALBUMIN 3.7 GM/DL (3.2-5.2); ALT/SGPT 42 U/L (12-78); BILIRUBIN,DIRECT 0.2 MG/DL (0.0-0.2); BILIRUBIN,TOTAL 0.8 MG/DL (0.2-1.0); BLOOD UREA NITROGEN 15 MG/DL (7-18); CALCIUM LEVEL 9.1 MG/DL (8.8-10.2); CARBON DIOXIDE LEVEL 26 MEQ/L (21-32); CHLORIDE LEVEL 102 MEQ/L (98-107); CK-MB VALUE MASS 2.3 NG/ML (<3.6); CPK CREATINE PHOSPHOKINASE 79 U/L (26-192); CREATININE FOR GFR 0.81 MG/DL (0.55-1.30); GLOMERULAR FILTRATION RATE > 60.0 (>39); GLUCOSE, FASTING 132 MG/DL (70-100); MB/CK RELATIVE INDEX 2.91 (< OR =4); NT-PRO BNP 515 PG/ML (<125); POTASSIUM SERUM 3.5 MEQ/L (3.5-5.1); SODIUM LEVEL 137 MEQ/L (136-145); TOTAL PROTEIN 7.3 GM/DL (6.4-8.2); TROPONIN I 0.03 NG/ML (< 0.10)
[2019-03-22 16:56] LABS: PROTHROMBIN TIME 12.9 SECONDS (11.8-14.0)
[2019-03-22] MEDS ORDERED: dexameTHASONE 20 MG/5 ML VIAL (J1100) IV ONE (17:30)
[2019-03-22] MEDS ORDERED: MEST60TA PO (17:56)
[2019-03-22] MEDS ORDERED: VENTAER INH (17:56)
[2019-03-22] MEDS ORDERED: PRED10TA2 PO (17:56)
[2019-03-22] MEDS ORDERED: D5W/0.45% SODIUM CHLORIDE 1,000 ML IV SCH (18:15)
[2019-03-22] MEDS ORDERED: IBUPROFEN 400 MG TAB PO PRN (18:30)
[2019-03-22] MEDS ORDERED: LEVALBUTEROL 1.25 MG/0.5 ML CONCENTRATE NEB INH PRN (18:30)
[2019-03-22] MEDS: MONTELUKAST 10 MG TAB PO SCH (19:20)
[2019-03-22] MEDS: guaiFENesin ER 600 MG TAB PO SCH (19:20)
[2019-03-22] MEDS: LEVALBUTEROL 1.25 MG/0.5 ML CONCENTRATE NEB INH SCH ×2 (19:29→23:35)
--- NOTE | 2019-03-22 19:29 | ECGEPIP ---
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
[2019-03-22 19:54] VITALS: BP 130/85
--- NOTE | 2019-03-22 21:39 | HPE ---
DATE OF ADMISSION: 03/22/2019 CHIEF COMPLAINT: Shortness of breath, dysphagia. HISTORY OF PRESENTING ILLNESS: A 73-year-old female with recent diagnosis of myasthenia gravis, positive for acetylcholine receptor antibody, was recently admitted to [facility] due to acute respiratory distress on 03/17/2019, then discharged 03/21/2019, when she was intubated and treated with intravenous (IV) Solu-Medrol due to stridor on examination. At that time, patient was thought to have a vocal cord dysfunction versus myasthenia gravis, was seen by neurology, who recommended prednisone 50 mg daily, as well as pyridostigmine three times a day 60 mg. Since the hospital discharge, patient continued to complain of shortness of breath which worsens when she lies back, difficult to breath and usually gets better when she sits up. It is not exertional. She has been unable to swallow her pills at home, but has been eating pureed diet and has been putting this on pureed apricots. The patient has been drinking iced tea without much difficulty. She has not eaten since she was released from the hospital. She has also complained of explosive diarrhea, 2-3 times, since hospital discharge, which was tracked for infectious etiology and was negative for Clostridium (C) difficile, according to the patient. Patient denies any nausea, vomiting, abdominal pain. She complains of coughing when she tries to swallow something and feels like her medications that she had taken with yogurt comes up and leaves her gasping throughout the night. The patient's evaluation in the emergency room (ER) included a repeat chest x-ray, which showed no acute disease. She was in sinus rhythm, afebrile. White count slightly elevated at 11.5. BNP was 515. Patient was positive for respiratory syncytial virus (RSV). PAST MEDICAL HISTORY: 1. Myasthenia gravis. 2. Exercise-induced asthma. 3. Chronic cervicalgia with cervical spondylosis. 4. Reflux. 5. Vitamin D deficiency. PAST SURGICAL HISTORY: 1. Hysterectomy. 2. Cholecystectomy. 3. Bunionectomy. 4. Recent mechanical activation for stridor. HOME MEDICATIONS: - pyridostigmine 60 mg three times a day - prednisone taper 20 mg daily - Prilosec 20 mg daily - ibuprofen 40 mg four times a day - albuterol 2 puffs inhaled every 6 hours as needed - [id number] mg daily ALLERGIES: Peppers. SOCIAL HISTORY: Patient is a FULL CODE. Healthcare proxy is her daughter. 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 Social alcohol use. Does not drink daily, once in a blue jason. Bottle of wine with friends every few months. Previous smoker, quit in [id number]. No recreational drug use. FAMILY HISTORY: Noncontributory due to age. REVIEW OF SYSTEMS: Per history of present illness (HPI). denies diplopia, c/o food regurgitation, generalized weakness at the end of the day, and SOB with supine position. A 12 point system otherwise negative. PHYSICAL EXAMINATION: Temperature 98.3, pulse 95, respiratory rate 18, blood pressure 146/76, 94% on room air. GENERAL: Patient is awake, alert, oriented x3, able to speak in full sentences without any conversational dyspnea. no diplopia. no ptosis. Pupils are round, reactive to light. Extraocular muscles are intact. The patient has no horizontal or vertical nystagmus. Her face is symmetric. Tongue is midline. Bilateral upper and lower extremities are 5/5 strength. Deep tendon reflexes (DTRs) are intact.Negative Babinski. No dysmetria in ulvzgh-ov-hisz testing. No jugular venous distention (JVD). No thyromegaly. No cervical lymphadenopathy. Dry mucous membranes. Neck has no stridor. Lungs are clear to auscultation. No wheezing, rales or rhonchi. HEART: S1, S2. Sinus rhythm. No murmurs, rubs or gallops. ABDOMEN: Soft, nontender, nondistended. Positive bowel sounds. EXTREMITIES: Trace edema bilateral lower extremities. LABORATORY DATA: White count 11.5, hemoglobin 15, hematocrit 44, platelet count 202, 80% neutrophils. Sodium 137, potassium 3.5, chloride 102, bicarbonate 26, BUN 15, creatinine 0,81, glucose 132, lactic acid 1.4, calcium 9.1. Total bilirubin 0.8, direct bilirubin 0.2, AST 27, ALT 42, alkaline phosphatase 100. Total CK 7, MB fraction 2.3. Troponin 0.03. BNP of 515. Total protein 7.3, albumin 3.7. TSH 1.69. Chest x-ray: No acute cardiopulmonary process. CT chest: No thymoma noted. ASSESSMENT AND PLAN: This is a 73-year-old female, recent diagnosis of myasthenia gravis, recently admitted 03/17/2019 to 03/21/2019, status post intubation, on tapered dose of steroids, presents with worsening dysphagia and shortness of breath. IMPRESSION: 1. Myasthenia gravis . most likely brought on by acute infection with respiratory syncytial virus. no recent changes in medications and denies any beta blockers, anti-arrhythmics, or aminoglycoside use. no obvious electrolyte abnormalities from diarrhea to have caused the exacerbation. will check vital capacity and NIF. Case was discussed with Dr. Shankar, neurologist tile professional, who recommended continuation of high-dose steroids at 50 mg daily and not to be tapered and to be taken for life and continue on pyridostigmine 60 mg every 8 hours. Patient is currently receiving Solu-Medrol 40 IV every 8 hours, which will be tapered down as symptoms improve overnight. She will be kept on a pureed diet. Rule out aspiration in the morning. Currently not having any stridor on examination. She will be admitted to progressive care unit (PCU). 2. Possible vocal cord dysfunction. Will continue to monitor patient's oxygenation throughout the night and respiratory complaints. If no significant improvement with Solu-Medrol, may need to get ENT to rule out vocal cord dysfunction. 3. Exercise-induced asthma. Continue on nebulizers, Xopenex. 4. Reflux. Continue on Prilosec. 5. Diarrhea. check GI panel and electrolytes and replete k and mg if low. 6. Dysphagia to solids. due to myasthenia gravis. on solumedrol iv 40mg q8hrs. check cookie swallow to rule out aspiration. keep on pureed diet. aspiration precautions. 7. Respiratory Syncytial Virus. droplet precautions. judicious handwashing. c/o rhinorrhea and cough. CXR: no infiltrate. Supportive Care. Deep venous thrombosis (DVT) prophylaxis. Compression stockings. Disposition: 1-2 days. await swallow eval, taper solumedrol over the next 24hrs. dc Tuesday or Tuesday. [facility]
[2019-03-22 23:59] VITALS: BP 140/65
[2019-03-23] MEDS ORDERED: methylPREDNISolone 500 MG, VIAL MATE ADAPTER 1 EACH in D5W 250 ML IV SCH ×3
[2019-03-23] MEDS: PYRIDOSTIGMINE 60 MG TAB PO SCH ×4 (01:35→20:52)
[2019-03-23] MEDS: LEVALBUTEROL 1.25 MG/0.5 ML CONCENTRATE NEB INH SCH ×2 (03:56→07:36)
[2019-03-23 04:00] VITALS: BP 147/49
[2019-03-23 08:00] VITALS: BP 134/74
[2019-03-23] MEDS: OMEPRAZOLE 20 MG CAP PO SCH (08:46)
[2019-03-23] MEDS: guaiFENesin ER 600 MG TAB PO SCH ×2 (08:46→20:52)
[2019-03-23] MEDS: methylPREDNISolone INJ 125 MG/2 ML VIAL (J2930) IV SCH ×2 (08:46→20:52)
[2019-03-23] MEDS ORDERED: PRED50TA PO (11:33)
--- NOTE | 2019-03-23 11:57 | IPNPDOC ---
Text Note Date of Service The patient was seen on 03/23/19. NOTE SUBJECTIVE: Patient was seen at bedside today. Pt reports that her dyspnea at rest has improved. She states that she has had a cough productive of non-bloody sputum, but that she has had difficulty clearing it due to her dyspnea. Pt notes that she noticed orthopnea and, also upon lying flat, pressure from the level of the clavicles inferiorly to the thyroid cartilage superiorly, b/l. Pt reports that she has noticed that she needs to use slightly more effort to close her eyes at night when going to sleep, but is not certain whether she has this problem at any point in the day. Pt denies diplopia and states that her difficulty swallowing does not tire changer aircraft the course of the day. She provided further history of her exercise-induced asthma: she stated that she was diagnosed many years ago, but she had not had any exacerbations until her present illness. Pt continues to experience dysphagia to solids. Pt has no further complaints at this time. OBJECTIVE: VITALS: Please see below. GENERAL: Pt appears stated age and is sitting comfortably in a chair in no acute distress. HEENT: Normocephalic, atraumatic. Mouth and throat showed no erythema or swelling. CARDIOVASCULAR: Regular rate and rhythm. No murmurs, rubs, or gallops. PULMONARY: Pt not restricted in speech by dyspnea. Clear to auscultation b/l. No wheezes, rales, or rhonchi. ABDOMEN: No rashes, bumps, or bruises. Bowel sounds present in all 4 quadrants. Abdomen soft with no organomegaly. EXTREMITIES: No peripheral edema. Pulses 2+ b/l in upper and lower extremities. NEUROLOGICAL: CNII-XII intact. PSYCHIATRIC: Pt is calm and cooperative. Full affect. Pt answers questions appropriately. ASSESSMENT: Pt is a 73-year-old female with a significant past medical history of myasthenia gravis and exercise-induced asthma who presented to the [facility] emergency department complaining of dyspnea and dysphagia, was found to have respiratory syncytial virus, and has been admitted for evaluation and treatment of her infection and possible exacerbation of her myasthenia gravis. PLAN: 1. Myasthenia gravis - Likely exacerbated by RSV infection (see below). - Methylprednisolone decreased from 40mg IV q8h to q12h. Discharge plan is to get to maintenance dose of 50mg PO qd. Continue maintenance pyridostigmine. - Follow-up appointment with Dr. Brown at [facility] scheduled for 03/30/2019 at 12:00pm. Follow-up appointment with Lisa Torres for primary care scheduled for 03/27/2019 at 9:20am. 2. Dysphagia to solids, likely secondary to myasthenia gravis - Has not improved. - Swallow study pending. - Continue pureed diet and aspiration precautions. 2. Respiratory syncytial virus - Tested positive by respiratory panel. - Oxygen saturation stable overnight on room air. Pt denied dyspnea at rest. - Sputum culture pending. - Continue guaifenesin PO BID and acapella use to assist in sputum clearance. - Continue supportive care and droplet precautions. 3. Exercise-induced asthma - Continue levalbuterol PRN and montelukast 10mg PO qd to address possible asthma involvement in current illness. 4. Gastrointestinal reflux disease - Continue omeprazole 4. DVT prophylaxis: Compression stockings. DISPOSITION: Discharge planned for tomorrow pending clinical improvement. VS,Fishbone, I+O VS, Fishbone, I+O Laboratory Tests 03/22/19 14:47 Vital Signs Date Time Temp Pulse Resp B/P (MAP) Pulse Ox O2 Delivery O2 Flow Rate FiO2 03/23/19 08:00 97.6 71 18 134/74 (94) 95 Room Air I&O- Last 24 Hours up to 6 AM 03/23/19 06:00 Intake Total 540 ml Output Total 400 ml Balance 140 ml GME ATTESTATION GME ATTESTATION My faculty preceptor for this patient encounter was physically present during the encounter and was fully available. All aspects of the patient interview, examination, medical decision making process, and medical care plan development were reviewed and approved by the faculty preceptor. The faculty preceptor is aware and concurs with the plan as stated in the body of this note and will attest to such by his/her cosignature. ATTENDING NOTE ATTENDING PHYSICIAN NOTE: I have independently interviewed and examined the patient at the bedside, and agree with the physical findings and management plans as documented above. All of the patient's questions and concerns have been addressed. GAIL CROWDER OMS-III Mar 23, 2019 11:57 TRAY REAVES MD Mar 23, 2019 12:17
[2019-03-23 12:00] VITALS: BP 137/86
[2019-03-23 16:00] VITALS: BP 142/82
[2019-03-23 18:24] VITALS: BP 161/79
[2019-03-23] MEDS: MONTELUKAST 10 MG TAB PO SCH (20:52)
[2019-03-23 20:53] VITALS: BP 141/67
[2019-03-24] MEDS: PYRIDOSTIGMINE 60 MG TAB PO SCH (05:30)
[2019-03-24 05:59] VITALS: BP 139/64
[2019-03-24 08:05] LABS: HEMATOCRIT 44.5 % (36.0-47.0); HEMOGLOBIN 14.2 g/dl (12.0-15.5); MEAN CORPUSCULAR HEMOGLOBIN 28.3 pg (27.0-33.0); MEAN CORPUSCULAR HGB CONC 31.9 g/dl (32.0-36.5); MEAN CORPUSCULAR VOLUME 88.8 fl (80.0-96.0); PLATELET COUNT, AUTOMATED 215 10^3/uL (150-450); RED BLOOD COUNT 5.01 10^6/uL (4.00-5.40); WHITE BLOOD COUNT 13.7 10^3/uL (4.0-10.0)
[2019-03-24 08:22] LABS: CALCIUM LEVEL 9.3 MG/DL (8.8-10.2); CREATININE FOR GFR 1.01 MG/DL (0.55-1.30); GLOMERULAR FILTRATION RATE 57.2 (>39); POTASSIUM SERUM 3.6 MEQ/L (3.5-5.1)
[2019-03-24] MEDS: guaiFENesin ER 600 MG TAB PO SCH (08:40)
[2019-03-24] MEDS: OMEPRAZOLE 20 MG CAP PO SCH (08:40)
[2019-03-24] MEDS ORDERED: FAMO20TA PO (08:41)
[2019-03-24] MEDS ORDERED: predniSONE 50 MG TAB PO SCH (09:00)
--- NOTE | 2019-03-24 11:02 | DS.PDOC ---
Discharge Summary General Date of Admission Mar 22, 2019 at 17:40 Date of Discharge 03/24/2019 Attending Physician: TRAY REAVES MD Discharge Summary PROCEDURES PERFORMED DURING STAY: [None]. ADMITTING DIAGNOSES: 1. Myasthenia Gravis 2. Exercise induced asthma 3. Dysphagia 4. Respiratory Syncytial Virus Infection DISCHARGE DIAGNOSES: 1. Myasthenia Gravis 2. Exercise induced asthma 3. Dysphagia 4. Respiratory Syncytial Virus Infection COMPLICATIONS/CHIEF COMPLAINT: Vocal Cord Dysfunction. HISTORY OF PRESENT ILLNESS: Patient is a 73 year old female who presented to the [facility] ER with complaint of shortness of breath and dysphagia. She was seen previously at [facility] on 03/17/2019 and diagnosed with Mysthenia Gravis. At that time she was intubated and placed on high dose steroids. She had been seen by neurology who had recommended Prednisone 50mg daily and pyridostigmine three times daily. Since her discharge she had noticed shortness of breath which was worse when she would lay back. Additionally, she admitted to dysphagia and difficulty swallowing her pills. She had been placed on a pureed diet. She had denied any choking but stated that she just had difficulty swallowing. She stated that after taking her medications she often starts coughing. In the ER the patient received a chest x-ray which demonstrated no acute disease. She was vitally stable. She received a respiratory panel due to her cough which resulted for RSV. The patient was admitted to hospitalist service for further evaluation and management On admission the patients case was discussed with neurology with recommendations to continue high dose steroids. The patient had stated that she was not taking the steroids outpatient. It was felt that the patients Myasthenia may have been exacerbated by her RSV infection. The patient was placed back on prednisone 50mg daily. Additionally the patient complained of dysphagia. She was seen by speech therapy with recommendations to continue her pureed diet. She will need to be evaluated by ENT for possible vocal cord dysfunction. The patient does have GERD and laryngeal pharyngeal reflux is possible. The patient was instructed to continue her prilosec on discharge. Additionally, she was instructed to take Famotidine. DISCHARGE MEDICATIONS: Please see below. ALLERGIES: Please see below. PHYSICAL EXAMINATION ON DISCHARGE: VITAL SIGNS: Please see below. GENERAL: Awake, alert, and oriented. Lying in bed comfortably. appears in no acu te distress HEENT: Atraumatic, normocephalic. Eyes are nonicteric. Trachea is midline NECK: No palpable cervical, axillary, or supraclavicular lymphadenopathy CARDIOVASCULAR EXAMINATION: Normal S1, S2. Regular rate and rhythm. No clicks rubs or murmurs RESPIRATORY EXAMINATION: Clear vesicular breath sounds bilaterally with good respiratory effort. No wheezes, rhonchi, or rales ABDOMINAL EXAMINATION: Soft, nondistended. Nontender. No rebound tenderness or guarding. normoactive bowel sounds EXTREMITIES: No edema. Full and equal pulses in bilateral lower extremities SKIN: No rashes or lesions NEUROLOGICAL EXAMINATION: No focal neurological deficits PSYCHIATRIC EXAMINATION: Mood and affect appear appropriate LABORATORY DATA: Please see below. IMAGING: CHEST, SINGLE VIEW: There is no evidence of acute infiltrate. No pleural effusion is seen. The heart is normal in size. The mediastinal silhouette is unremarkable. The visualized osseous structures are intact. There is calcification and tortuosity of the thoracic aorta. IMPRESSION: No acute pulmonary disease. Electronically Signed by Larry Tejeda MD 03/22/2019 05:45 P PROGNOSIS: Fair ACTIVITY: [As tolerated]. DIET: Full upright position for all meals/snacks/meds/ Cold drinks with meals/snacks/meds. No talking during meals. Small frequent meals. Chin tuck with swallow. Continue Level 2 solids and regular thin liquids (extra sauce/gravy/syrup/condiments). Meds crushes with puree assist DISCHARGE PLAN: Patient is to be discharged home with follow-up with PCP in 7-10 days. She is to follow-up with Neurology outpatient for management of her Myasthenia gravis. Additionally she is to schedule outpatient appointment with ENT for management of dysphagia DISCHARGE CONDITION: [Stable]. TIME SPENT ON DISCHARGE: Greater than 30 minutes. ATTENDING PHYSICIAN ADDENDUM: I have independently interviewed and examined this patient at the bedside , and agree with the physical findings and management plan as documented above by my resident physician. All of the patient's questions and concerns have been addressed. Vital Signs/I&Os Vital Signs Date Time Temp Pulse Resp B/P (MAP) Pulse Ox O2 Delivery O2 Flow Rate FiO2 03/24/19 05:59 97.7 71 18 139/64 (89) 94 Room Air I&O- Last 24 Hours up to 6 AM 03/24/19 05:59 Intake Total 1410 ml Output Total 800 ml Balance 610 ml Laboratory Data Labs 24H Laboratory Tests 2 03/24/19 07:44: Nucleated Red Blood Cells % (auto) 0.0, Anion Gap 8, Glomerular Filtration Rate 57.2, Calcium Level 9.3 CBC/BMP Laboratory Tests 03/24/19 07:44 Microbiology Microbiology 03/22/19 Gram Stain - Final, Complete 03/22/19 Sputum Culture - Final, Complete 03/22/19 Respiratory Virus Panel (PCR) (DANO) - Final, Complete Respiratory Syncytial Virus 03/22/19 Blood Culture - Preliminary, Resulted No growth after 24 hours . All specim... 03/22/19 Blood Culture - Preliminary, Resulted No growth after 24 hours . All specim... Discharge Medications Scheduled Famotidine (Famotidine) 20 Mg Tablet, 1 TAB PO BID Loratadine (Loratadine) 10 Mg Tab.rapdis, 10 MG PO DAILY, (Reported) Omeprazole (Omeprazole) 20 Mg Tab, 20 MG PO DAILY, (Reported) Prednisone (Prednisone) 50 Mg Tablet, 50 MG PO DAILY Pyridostigmine Sophia (Mestinon) 60 Mg Tablet, 60 MG PO Q8H, (Reported) Scheduled PRN Albuterol Sulfate (Ventolin Hfa) 18 Gm Hfa.aer.ad, 2 PUFF INH Q6H PRN for SHORTNESS OF BREATH, (Reported) Epinephrine (Epipen 2-Efren) 0.3 Mg/0.3 Ml Inj, 0.3 MG IM ASDIRECTED PRN for ANAPHYLAXID, (Reported) Ibuprofen (Ibuprofen) 400 Mg Tab, 400 MG PO QID PRN for pain, (Reported) Allergies Coded Allergies: PEPPERS (Verified Allergy, Unknown, 10/11/16) HIPOLITO ROJAS DO Mar 24, 2019 11:02 TRAY REAVES MD Mar 24, 2019 16:00
== END 2019-03-24 11:05 | disposition home or self-care (01) | DRG 57 ==
LOC: M ED 14:09 → M ED INP 17:40 → ENRESERVDT 19:05 → ENRESERVTM 19:05 → M PCU 19:55 → M MS5PR 03-23 17:00
PROVIDERS: ADMIT General Practice; ATTEND General Practice
DX: G70.01 Myasthenia gravis with (acute) exacerbation (principal); J45.990 Exercise induced bronchospasm; M47.892 Other spondylosis, cervical region; K21.9 Gastro-esophageal reflux disease without esophagitis; E55.9 Vitamin D deficiency, unspecified; Z90.49 Acquired absence of other specified parts of digestive tract; Z90.79 Acquired absence of other genital organ(s); Z79.899 Other long term (current) drug therapy; Z91.018 Allergy to other foods; B97.4 Respiratory syncytial virus as the cause of diseases classified elsewhere; R19.7 Diarrhea, unspecified

== ENCOUNTER 2019-04-11 10:21 | Outpatient (CLI) | payer OTHER ==
[~2019-04-11] VITALS: Ht 162.6 cm; Wt 79.5 kg
[~2019-04-11 10:21] MED LIST changes: +FAMO20TA PO; +PRED10TA2 PO; +PRED50TA PO
[2019-04-11 10:45] VITALS: BP 141/79
[2019-04-11] MEDS ORDERED: IMMUNE GLOBULIN 10% 10 GM in IV 1 EA IV ONE (11:00)
[2019-04-11] MEDS ORDERED: IMMUNE GLOBULIN 10% 20 GM in IV 1 EA IV ONE (11:00)
[2019-04-11 12:00] VITALS: BP 121/62
[2019-04-11 12:30] VITALS: BP 127/65
[2019-04-11 13:00] VITALS: BP 148/68
[2019-04-11 14:15] VITALS: BP 141/67
[2019-04-11 15:00] VITALS: BP 128/68
== END 2019-04-11 15:00 | disposition home or self-care (01) ==
LOC: M INFU 10:21
PROVIDERS: ATTEND Psychiatry & Neurology Neurology
DX: G70.01 Myasthenia gravis with (acute) exacerbation (principal); Z91.018 Allergy to other foods
CPT/HCPCS: 96365; 96366; J1459

== ENCOUNTER 2019-04-12 09:57 | Outpatient (CLI) | payer OTHER ==
[~2019-04-12] VITALS: Ht 160 cm; Wt 79.0 kg
[2019-04-12 10:10] VITALS: BP 159/70
[2019-04-12] MEDS ORDERED: IMMUNE GLOBULIN 10% 10 GM in IV 1 EA IV ONE (10:15)
[2019-04-12] MEDS ORDERED: IMMUNE GLOBULIN 10% 20 GM in IV 1 EA IV ONE (10:15)
[2019-04-12 10:56] VITALS: BP 123/58
[2019-04-12 11:30] VITALS: BP 120/58
[2019-04-12 12:00] VITALS: BP 138/64
[2019-04-12 13:10] VITALS: BP 127/65
[2019-04-12 13:27] VITALS: BP 149/68
== END 2019-04-12 13:30 | disposition home or self-care (01) ==
LOC: M INFU 09:57
PROVIDERS: ATTEND Psychiatry & Neurology Neurology
DX: G70.01 Myasthenia gravis with (acute) exacerbation (principal); Z91.018 Allergy to other foods
CPT/HCPCS: 96365; 96366; J1459

== ENCOUNTER 2019-04-13 10:27 | Outpatient (CLI) | payer OTHER ==
[~2019-04-13] VITALS: Ht 160 cm; Wt 79.1 kg
[2019-04-13 10:30] VITALS: BP 139/62
[2019-04-13] MEDS ORDERED: IMMUNE GLOBULIN 10% 10 GM in IV 1 EA IV ONE (10:45)
[2019-04-13] MEDS ORDERED: IMMUNE GLOBULIN 10% 20 GM in IV 1 EA IV ONE (10:45)
[2019-04-13 11:20] VITALS: BP 134/58
[2019-04-13 11:50] VITALS: BP 136/65
[2019-04-13 12:20] VITALS: BP 157/72
[2019-04-13 12:50] VITALS: BP 137/65
[2019-04-13 14:20] VITALS: BP 148/70
== END 2019-04-13 14:25 | disposition home or self-care (01) ==
LOC: M INFU 10:27
PROVIDERS: ATTEND Psychiatry & Neurology Neurology
DX: G70.01 Myasthenia gravis with (acute) exacerbation (principal); Z91.018 Allergy to other foods
CPT/HCPCS: 96365; 96366; J1459

== ENCOUNTER 2019-04-14 10:05 | Outpatient (CLI) | payer OTHER ==
[~2019-04-14] VITALS: Ht 160 cm; Wt 80.0 kg
[2019-04-14] VITALS (10 sets, daily range): BP systolic 128–143; BP diastolic 67–76
[2019-04-14] MEDS ORDERED: IMMUNE GLOBULIN 10% 20 GM in IV 1 EA IV ONE (11:00)
[2019-04-14] MEDS ORDERED: IMMUNE GLOBULIN 10% 10 GM in IV 1 EA IV ONE (11:00)
== END 2019-04-14 15:15 | disposition home or self-care (01) ==
LOC: M INFU 10:05 → M MS5PR 10:11 → M INFU 15:15
PROVIDERS: ATTEND Psychiatry & Neurology Neurology
DX: G70.01 Myasthenia gravis with (acute) exacerbation (principal); Z91.018 Allergy to other foods
CPT/HCPCS: 96374; J1459

== ENCOUNTER 2019-04-15 08:38 | Outpatient (CLI) | payer OTHER ==
[~2019-04-15] VITALS: Ht 160 cm; Wt 84.9 kg
[2019-04-15] VITALS (8 sets, daily range): BP systolic 130–153; BP diastolic 64–80
[2019-04-15] MEDS ORDERED: IMMUNE GLOBULIN 10% 20 GM in IV 1 EA IV ONE (10:00)
[2019-04-15] MEDS ORDERED: IMMUNE GLOBULIN 10% 10 GM in IV 1 EA IV ONE (10:00)
== END 2019-04-15 13:05 | disposition home or self-care (01) ==
LOC: M INFU 08:38 → M MS5PR 08:41 → M INFU 13:05
PROVIDERS: ATTEND Psychiatry & Neurology Neurology
DX: G70.01 Myasthenia gravis with (acute) exacerbation (principal); Z91.018 Allergy to other foods
CPT/HCPCS: 96374; J1459

== ENCOUNTER → 2019-12-01 | Outpatient (CLI) | payer OTHER ==
[~2019-12-01] MED LIST changes: +CALC-211 PO; -CALCTAB7 PO; +FOLI1TAB11 PO; +MYCO500T PO; +PRED5PAK PO
== END ==
LOC: M LABSMTC 10:25
PROVIDERS: ATTEND Anesthesiology
DX: Z01.812 Encounter for preprocedural laboratory examination (principal); Z20.828 Contact with and (suspected) exposure to other viral communicable diseases
CPT/HCPCS: C9803; U0003

== ENCOUNTER 2019-12-06 07:11 | Day surgery (SDC) | payer OTHER ==
[~2019-12-06] VITALS: Ht 160 cm; Wt 92.1 kg
[~2019-12-06 07:11] MED LIST changes: +CEFUROXIME 1MG/0.1ML INTRACAMERAL INJ As Ordered ONE; +DUOVISC (0.50ML VISCOAT/0.55ML PROVISC) OPHTH KIT As Ordered ONE; +OFLOXACIN 0.3 % (OCUFLOX) OPTH SOL 5ML OS ONE; +PHENYLEPHRINE 2.5% OPHTH SOL 2ML OS ONE; +POVIDONE-IODINE 5% OPHTH PREP SOL 30ML As Ordered ONE; +PROPARACAINE 0.5% OPHTH SOL 15ML OS ONE; +TROPICAMIDE 1% OPHTH SOLN 2ML OS ONE
[2019-12-06] MEDS ORDERED: PHENYLEPHRINE 2.5% OPHTH SOL 2ML As Ordered ONE (07:39)
[2019-12-06] MEDS ORDERED: OFLOXACIN 0.3 % (OCUFLOX) OPTH SOL 5ML As Ordered ONE (07:39)
[2019-12-06] MEDS ORDERED: PROPARACAINE 0.5% OPHTH SOL 15ML As Ordered ONE (07:39)
[2019-12-06] MEDS ORDERED: TROPICAMIDE 1% OPHTH SOLN 2ML As Ordered ONE (07:39)
[2019-12-06] MEDS ORDERED: BSS IRR 500ML/OMIDRIA 4ML IRR BAG (OR ONLY) (J1097 PER ML) As Ordered ONE ×2 (08:13→08:49)
[2019-12-06] MEDS ORDERED: MIDAZOLAM INJ 2MG/2ML VIAL (J2250 PER 1MG) As Ordered ONE (09:03)
[2019-12-06] MEDS ORDERED: fentaNYL 100 MCG/2 ML INJECTION (J3010) As Ordered ONE (09:03)
[2019-12-06 09:40] VITALS: BP 154/80
== END 2019-12-06 09:53 | disposition home or self-care (01) ==
LOC: M SDC 07:11
PROVIDERS: ATTEND Ophthalmology
DX: H25.12 Age-related nuclear cataract, left eye (principal); K21.9 Gastro-esophageal reflux disease without esophagitis; E78.5 Hyperlipidemia, unspecified; E04.1 Nontoxic single thyroid nodule; K44.9 Diaphragmatic hernia without obstruction or gangrene; K57.92 Diverticulitis of intestine, part unspecified, without perforation or abscess without bleeding; J45.909 Unspecified asthma, uncomplicated; Z87.891 Personal history of nicotine dependence; Z79.899 Other long term (current) drug therapy; Z79.52 Long term (current) use of systemic steroids; Z91.018 Allergy to other foods; G70.00 Myasthenia gravis without (acute) exacerbation
CPT/HCPCS: 66984; J1097; J2250; J3010

== ENCOUNTER → 2019-12-08 | Outpatient (CLI) | payer OTHER ==
[~2019-12-08] MED LIST changes: -CEFUROXIME 1MG/0.1ML INTRACAMERAL INJ As Ordered ONE; -DUOVISC (0.50ML VISCOAT/0.55ML PROVISC) OPHTH KIT As Ordered ONE; -OFLOXACIN 0.3 % (OCUFLOX) OPTH SOL 5ML OS ONE; -PHENYLEPHRINE 2.5% OPHTH SOL 2ML OS ONE; -POVIDONE-IODINE 5% OPHTH PREP SOL 30ML As Ordered ONE; -PROPARACAINE 0.5% OPHTH SOL 15ML OS ONE; -TROPICAMIDE 1% OPHTH SOLN 2ML OS ONE
== END ==
LOC: M LABSMTC 08:25
PROVIDERS: ATTEND Anesthesiology
DX: Z01.812 Encounter for preprocedural laboratory examination (principal); Z20.828 Contact with and (suspected) exposure to other viral communicable diseases
CPT/HCPCS: C9803; U0003

== ENCOUNTER 2019-12-13 08:48 | Day surgery (SDC) | payer OTHER ==
[~2019-12-13] VITALS: Ht 161.3 cm; Wt 90.3 kg
[~2019-12-13 08:48] MED LIST changes: +BSS IRR 500ML/OMIDRIA 4ML IRR BAG (OR ONLY) (J1097 PER ML) As Ordered ONE; +CEFUROXIME 1MG/0.1ML INTRACAMERAL INJ As Ordered ONE; +DUOVISC (0.50ML VISCOAT/0.55ML PROVISC) OPHTH KIT As Ordered ONE; +OFLOXACIN 0.3 % (OCUFLOX) OPTH SOL 5ML OD ONE; +PHENYLEPHRINE 2.5% OPHTH SOL 2ML OD ONE; +POVIDONE-IODINE 5% OPHTH PREP SOL 30ML As Ordered ONE; +PROPARACAINE 0.5% OPHTH SOL 15ML OD ONE; +TROPICAMIDE 1% OPHTH SOLN 2ML OD ONE
[2019-12-13] MEDS ORDERED: fentaNYL 100 MCG/2 ML INJECTION (J3010) As Ordered ONE (10:26)
[2019-12-13] MEDS ORDERED: MIDAZOLAM INJ 2MG/2ML VIAL (J2250 PER 1MG) As Ordered ONE (10:26)
[2019-12-13 11:25] VITALS: BP 145/70
== END 2019-12-13 11:25 | disposition home or self-care (01) ==
LOC: M SDC 08:48
PROVIDERS: ATTEND Ophthalmology
DX: H25.11 Age-related nuclear cataract, right eye (principal); E78.5 Hyperlipidemia, unspecified; E04.1 Nontoxic single thyroid nodule; G70.00 Myasthenia gravis without (acute) exacerbation; J45.909 Unspecified asthma, uncomplicated; M81.0 Age-related osteoporosis without current pathological fracture; K57.92 Diverticulitis of intestine, part unspecified, without perforation or abscess without bleeding; K44.9 Diaphragmatic hernia without obstruction or gangrene; R60.0 Localized edema; Z91.018 Allergy to other foods; Z87.891 Personal history of nicotine dependence; Z79.899 Other long term (current) drug therapy
CPT/HCPCS: 66984; J1097; J2250; J3010

== ENCOUNTER → 2019-12-17 | Outpatient (REF) | payer OTHER ==
[~2019-12-17] MED LIST changes: -BSS IRR 500ML/OMIDRIA 4ML IRR BAG (OR ONLY) (J1097 PER ML) As Ordered ONE; -CEFUROXIME 1MG/0.1ML INTRACAMERAL INJ As Ordered ONE; -DUOVISC (0.50ML VISCOAT/0.55ML PROVISC) OPHTH KIT As Ordered ONE; -OFLOXACIN 0.3 % (OCUFLOX) OPTH SOL 5ML OD ONE; -PHENYLEPHRINE 2.5% OPHTH SOL 2ML OD ONE; -POVIDONE-IODINE 5% OPHTH PREP SOL 30ML As Ordered ONE; -PROPARACAINE 0.5% OPHTH SOL 15ML OD ONE; -TROPICAMIDE 1% OPHTH SOLN 2ML OD ONE
== END ==
LOC: M LAB REF 12:19
PROVIDERS: ATTEND Internal Medicine
DX: H53.2 Diplopia (principal); R13.10 Dysphagia, unspecified; G70.00 Myasthenia gravis without (acute) exacerbation

== ENCOUNTER → 2019-12-18 | Outpatient (REF) | payer OTHER ==
[2019-12-18 17:18] LABS: APPEARANCE, URINE CLOUDY (CLEAR); BACTERIA, URINE AUTO NEGATIVE (NEGATIVE); BILIRUBIN, URINE AUTO NEGATIVE (NEGATIVE); BLOOD, URINE BLOOD 1+ (NEGATIVE); COLOR, URINE YELLOW (YELLOW); GLUCOSE, URINE (UA) AUTO NEGATIVE (NEGATIVE); KETONE, URINE AUTO NEGATIVE (NEGATIVE); LEUKOCYTE ESTERASE, URINE AUTO TRACE (NEGATIVE); NITRITE, URINE AUTO NEGATIVE (NEGATIVE); PROTEIN, URINE AUTO NEGATIVE (NEGATIVE); RBC, URINE AUTO 0 /HPF (0-3); SPECIFIC GRAVITY URINE AUTO 1.018 (1.002-1.035); SQUAMOUS EPITHELIAL CELL UR AU 0 /HPF (0-6); UROBILINOGEN, URINE AUTO 0.2 mg/dL (0.0-2.0); WBC, URINE AUTO 0 /HPF (0-3)
== END ==
LOC: M LAB REF 16:51
PROVIDERS: ATTEND Internal Medicine
DX: R31.9 Hematuria, unspecified (principal)

== ENCOUNTER → 2020-05-18 | Outpatient (CLI) | payer SELFPAY | LOC: M LABSMTC 08:34 | PROVIDERS: ATTEND Pediatrics | DX: Z11.52 Encounter for screening for COVID-19 (principal) ==

== ENCOUNTER → 2020-07-04 | Outpatient (CLI) | payer OTHER | LOC: M LABSMTC 09:55 | PROVIDERS: ATTEND Pediatrics | DX: Z20.822 Contact with and (suspected) exposure to COVID-19 (principal) ==

== ENCOUNTER → 2020-07-16 | Outpatient (REF) | payer OTHER | LOC: EEVIPCON 11:14 → M LAB REF 11:14 | PROVIDERS: ATTEND Internal Medicine | DX: N39.0 Urinary tract infection, site not specified (principal) ==

== ENCOUNTER → 2020-11-07 | Outpatient (CLI) | payer OTHER ==
[~2020-11-07] MED LIST changes: +OMEP20TA2 PO; -OMEP20TA9 PO; +OMEP40CA4 PO; -OMEP40CA97 PO
--- NOTE | 2020-11-07 12:37 | REP ---
INDICATION: THYROID NODULE COMPARISON: 10/24/2019 TECHNIQUE: Tejeda scale and color evaluation of the thyroid gland using the linear high frequency transducer. FINDINGS: Thyroid gland appears somewhat heterogeneous. Right lobe measures 2.7 x 1.6 x 1.5 cm and includes 6 x 3 x 6 mm stable midpole nodule. Left lobe measures 3.1 x 1.2 x 1.0 cm with 4 x 4 x 4 mm stable hypoechoic nodule. IMPRESSION: 1. Thyroid gland with solitary bilateral nodular densities appearing stable. 2. Previous examination demonstrated a complex cystic hypodense nodule in the left lobe which is not visualized on current exam. <Electronically signed by Teodoro Caldwell > 11/07/20 [id number]
== END ==
LOC: M RAD 11:29
PROVIDERS: ATTEND Internal Medicine
DX: E04.1 Nontoxic single thyroid nodule (principal)

== ENCOUNTER → 2020-11-26 | Outpatient (CLI) | payer OTHER, MEDICARE ==
--- NOTE | 2020-11-26 15:36 | REP ---
INDICATION: [facility] SCR MAMMO/Z12.31. COMPARISON: Multiple. There are no prior DBT images for comparison. TECHNIQUE: Digital screening mammography was carried out bilaterally in the CC and MLO projections using both 2D and 3D modalities and compared to the prior exams. By history, the patient has no complaints of a palpable breast abnormality or other significant breast complaints. FINDINGS: The breasts are unchanged in size and shape. There are no pavel soft tissue densities or spiculated masses. There is no internal architectural distortion. Stable benign calcifications are again seen bilaterally. In the right breast centrally on the CC view there is a new group of calcifications. This group of calcifications is seen centrally on the MLO view as well but adjacent to a group of stable benign calcifications. The Volpara volumetric breast density pattern is b. IMPRESSION: BIRADS/ACR category 0 mammogram. There is a new grouping of calcifications seen in the right breast centrally as described above and for which diagnostic digital magnified spot compression views are recommended in the CC and true lateral projections. This patient's Tyrer-Cuzick lifetime breast cancer risk assessment score is 3.3%. This mammogram was interpreted with the aid of an FDA-approved computer-aided detection system. The patient states she had a clinical breast exam in October 2020. The patient letter being requested is M0. RECOMMENDATION: As above <Electronically signed by Herb Isbell > 11/26/20 [id number]
--- NOTE | 2020-11-26 16:17 | DEXAMM ---
INDICATION: DISORDER OF BONE/M85.80. COMPARISON: 12/10/2016 as well as other prior exams. TECHNIQUE: Bone density was measured using dual-energy x-ray absorptiometry (DEXA). FINDINGS: AP SPINE L1-L4 BMD 1.269 g/cm2 Young Adult T-Score 0.7 Age Matched Z-Score 2.5. LT FEMUR, TOTAL BMD 0.872 g/cm2 Young Adult T-Score -1.1 Age Matched Z-Score 0.7. LT NECK BMD 0.734 g/cm2 Young Adult T-Score -2.2 Age Matched Z-Score -0.2. RT FEMUR, TOTAL BMD 0.874 g/cm2 Young Adult T-Score -1.1 Age Matched Z-Score 0.7. RT NECK BMD 0.820 g/cm2 Young Adult T-Score -1.6 Age Matched Z-Score 0.4. IMPRESSION: There is normal bone density of the spine. There is low bone density of the left hip. There is low bone density of the right hip. The density of the spine has increased 3.4% since the initial exam on 02/01/2005. The density of the spine decreased 2.3% since most recent exam on 12/10/2016. The density of the left hip has decreased 15.2% since initial exam on 02/01/2005. The density of the left hip has decreased 9.5% since most recent exam on 12/10/2016. The density of the right hip has decreased 12.8% since the initial exam on 02/01/2005. The density of the right hip has decreased 2.0% since the most recent exam on 12/10/2016. FOLLOW-UP: Recommendation for the next bone density exam: 2 years. <Electronically signed by Larry Tejeda > 11/26/20 [id number]
== END ==
LOC: M WHC 14:27
PROVIDERS: ATTEND Internal Medicine
DX: Z12.31 Encounter for screening mammogram for malignant neoplasm of breast (principal); R92.1 Mammographic calcification found on diagnostic imaging of breast; M85.89 Other specified disorders of bone density and structure, multiple sites

== ENCOUNTER → 2020-12-12 | Outpatient (CLI) | payer OTHER, MEDICARE ==
[2020-12-12 19:52] LABS: BASO # 0.1 10^3/uL (0.0-0.2); BASO % 0.9 % (0.0-1.0); EOS # 0.1 10^3/uL (0.0-0.5); EOS % 1.2 % (0.0-3.0); HEMATOCRIT 40.1 % (36.0-47.0); LYMPH # 2.2 10^3/uL (1.5-5.0); LYMPH % 29.9 % (24.0-44.0); MEAN CORPUSCULAR HEMOGLOBIN 28.8 pg (27.0-33.0); MEAN CORPUSCULAR HGB CONC 32.4 g/dl (32.0-36.5); MEAN CORPUSCULAR VOLUME 88.7 fl (80.0-96.0); MONO # 0.9 10^3/uL (0.0-0.8); MONO % 12.1 % (2.0-8.0); NEUTROPHILS # 4.2 10^3/uL (1.5-8.5); NEUTROPHILS % 55.6 % (36.0-66.0); PLATELET COUNT, AUTOMATED 228 10^3/uL (150-450); RED BLOOD COUNT 4.52 10^6/uL (4.00-5.40); WHITE BLOOD COUNT 7.5 10^3/uL (4.0-10.0)
[2020-12-12 20:16] LABS: ALBUMIN 3.4 GM/DL (3.2-5.2); ALT/SGPT 17 U/L (12-78); BILIRUBIN,DIRECT < 0.1 MG/DL (0.0-0.2); BILIRUBIN,TOTAL 0.3 MG/DL (0.2-1.0); BLOOD UREA NITROGEN 11 MG/DL (7-18); CALCIUM LEVEL 8.9 MG/DL (8.8-10.2); CARBON DIOXIDE LEVEL 31 MEQ/L (21-32); CHLORIDE LEVEL 104 MEQ/L (98-107); CREATININE FOR GFR 0.77 MG/DL (0.55-1.30); GLOMERULAR FILTRATION RATE > 60.0 (>39); GLUCOSE, FASTING 104 MG/DL (70-100); POTASSIUM SERUM 3.2 MEQ/L (3.5-5.1); SODIUM LEVEL 142 MEQ/L (136-145); TOTAL PROTEIN 6.1 GM/DL (6.4-8.2)
== END ==
LOC: M LAB 17:15
PROVIDERS: ATTEND Psychiatry & Neurology Neurology
DX: G70.00 Myasthenia gravis without (acute) exacerbation (principal)

== ENCOUNTER → 2020-12-18 | Outpatient (CLI) | payer OTHER, MEDICARE ==
--- NOTE | 2020-12-18 15:07 | REP ---
INDICATION: RIGHT BREAST ADD VIEWS. Recent screening mammography November 26, 2020 BI-RADS category 0 incomplete because of a new grouping of calcifications. COMPARISON: November 26, 2020, and December 10, 2016. TECHNIQUE: Magnified focal spot-compression CC, mL, and MLO views of the right breast are obtained. This mammogram was interpreted with the aid of an FDA-approved computer-aided detection system. FINDINGS: Magnified focal spot-compression images of the right breast demonstrate that the calcifications in question appear to be atherosclerotic arterial calcifications. They are not considered suspicious. The Volpara volumetric breast density pattern is a. IMPRESSION: BIRADS/ACR category 2 benign right breast mammographic findings. This patient's Tyrer-Cuzick lifetime breast cancer risk assessment score is 3.3%. RECOMMENDATION: Repeat screening mammography recommended 1 year (for women over 40). The patient letter being requested is M1. <Electronically signed by Bk Mccullough > 12/18/20 [id number]
== END ==
LOC: M WHC 14:04
PROVIDERS: ATTEND Internal Medicine
DX: Z12.31 Encounter for screening mammogram for malignant neoplasm of breast (principal); M85.80 Other specified disorders of bone density and structure, unspecified site

== ENCOUNTER → 2021-05-04 | Outpatient (REF) | payer OTHER, MEDICARE ==
[2021-05-07 13:07] LABS: ANTINUCLEAR ANTIBODIES DIRECT Negative (Negative)
== END ==
LOC: M LAB REF 16:22
PROVIDERS: ATTEND Internal Medicine
DX: I73.00 Raynaud's syndrome without gangrene (principal)

== ENCOUNTER → 2021-05-05 | Outpatient (REF) | payer OTHER, MEDICARE | LOC: M LAB REF 12:03 | PROVIDERS: ATTEND Internal Medicine | DX: N39.0 Urinary tract infection, site not specified (principal) ==

== ENCOUNTER → 2021-05-12 | Outpatient (CLI) | payer OTHER, MEDICARE ==
[~2021-05-12] MED LIST changes: +FEXO-117 PO; -FEXO180T58 PO
[2021-05-12 17:43] LABS: BASO # 0.1 10^3/uL (0.0-0.2); BASO % 0.9 % (0.0-1.0); EOS # 0.2 10^3/uL (0.0-0.5); EOS % 3.5 % (0.0-3.0); HEMATOCRIT 40.9 % (36.0-47.0); HEMOGLOBIN 13.2 g/dl (12.0-15.5); LYMPH # 2.3 10^3/uL (1.5-5.0); LYMPH % 35.3 % (24.0-44.0); MEAN CORPUSCULAR HGB CONC 32.3 g/dl (32.0-36.5); MEAN CORPUSCULAR VOLUME 86.7 fl (80.0-96.0); MONO # 1.1 10^3/uL (0.0-0.8); MONO % 16.2 % (2.0-8.0); NEUTROPHILS # 2.9 10^3/uL (1.5-8.5); NEUTROPHILS % 43.6 % (36.0-66.0); PLATELET COUNT, AUTOMATED 218 10^3/uL (150-450); RED BLOOD COUNT 4.72 10^6/uL (4.00-5.40); WHITE BLOOD COUNT 6.5 10^3/uL (4.0-10.0)
== END ==
LOC: M LAB 16:52
PROVIDERS: ATTEND Psychiatry & Neurology Neurology
DX: G70.00 Myasthenia gravis without (acute) exacerbation (principal)

== ENCOUNTER → 2021-06-01 | Outpatient (REF) | payer OTHER, MEDICARE ==
[2021-06-01 13:46] LABS: C REACTIVE PROTEIN QUANTITATIV 1.55 MG/DL (0.00-0.30); RHEUMATOID FACTOR QUANT < 10.0 IU/ML (<15.0)
== END ==
LOC: M LAB REF 12:17
PROVIDERS: ATTEND Internal Medicine
DX: M19.90 Unspecified osteoarthritis, unspecified site (principal); I73.00 Raynaud's syndrome without gangrene

== ENCOUNTER → 2021-06-23 | Outpatient (CLI) | payer OTHER, MEDICARE ==
[2021-06-23 17:50] LABS: ALBUMIN 3.6 GM/DL (3.2-5.2); BILIRUBIN,DIRECT 0.1 MG/DL (0.0-0.2); BILIRUBIN,TOTAL 0.3 MG/DL (0.2-1.0); TOTAL PROTEIN 6.2 GM/DL (6.4-8.2)
== END ==
LOC: M LAB 16:47
PROVIDERS: ATTEND Psychiatry & Neurology Neurology
DX: G70.00 Myasthenia gravis without (acute) exacerbation (principal); T50.905A Adverse effect of unspecified drugs, medicaments and biological substances, initial encounter

== ENCOUNTER → 2021-08-28 | Outpatient (CLI) | payer OTHER, MEDICARE ==
[~2021-08-28] MED LIST changes: +ALBU2.5V10 INH; -ALBU83IN INH
== END ==
LOC: M WUC 13:07
PROVIDERS: ATTEND Internal Medicine
DX: R05.9 Cough, unspecified (principal)

== ENCOUNTER → 2021-08-28 | Outpatient (CLI) | payer OTHER, MEDICARE ==
[2021-08-28 13:19] LABS: ALBUMIN 3.6 GM/DL (3.2-5.2); BILIRUBIN,DIRECT 0.2 MG/DL (0.0-0.2); BILIRUBIN,TOTAL 0.5 MG/DL (0.2-1.0); TOTAL PROTEIN 6.3 GM/DL (6.4-8.2)
== END ==
LOC: M LAB 12:07
PROVIDERS: ATTEND Psychiatry & Neurology Neurology
DX: G70.00 Myasthenia gravis without (acute) exacerbation (principal); T50.905A Adverse effect of unspecified drugs, medicaments and biological substances, initial encounter

== ENCOUNTER → 2021-11-24 | Outpatient (CLI) | payer OTHER, MEDICARE ==
[2021-11-24 18:11] LABS: BASO # 0.1 10^3/uL (0.0-0.2); EOS # 0.2 10^3/uL (0.0-0.5); EOS % 2.4 % (0.0-3.0); HEMATOCRIT 38.4 % (36.0-47.0); HEMOGLOBIN 12.5 g/dl (12.0-15.5); LYMPH # 2.1 10^3/uL (1.5-5.0); LYMPH % 33.4 % (24.0-44.0); MEAN CORPUSCULAR HEMOGLOBIN 28.4 pg (27.0-33.0); MEAN CORPUSCULAR HGB CONC 32.6 g/dl (32.0-36.5); MEAN CORPUSCULAR VOLUME 87.3 fl (80.0-96.0); MONO # 0.9 10^3/uL (0.0-0.8); MONO % 13.8 % (2.0-8.0); NEUTROPHILS # 3.1 10^3/uL (1.5-8.5); NEUTROPHILS % 49.1 % (36.0-66.0); PLATELET COUNT, AUTOMATED 217 10^3/uL (150-450); WHITE BLOOD COUNT 6.2 10^3/uL (4.0-10.0)
== END ==
LOC: M LAB 17:31
PROVIDERS: ATTEND Psychiatry & Neurology Neurology
DX: G70.00 Myasthenia gravis without (acute) exacerbation (principal); T50.905A Adverse effect of unspecified drugs, medicaments and biological substances, initial encounter

== ENCOUNTER → 2022-01-14 | Outpatient (CLI) | payer OTHER ==
[~2022-01-14] MED LIST changes: +LORA-930 PO; +VITA100093 PO
== END ==
LOC: M LABSMTC 09:54
PROVIDERS: ATTEND Anesthesiology
DX: Z01.812 Encounter for preprocedural laboratory examination (principal); Z20.822 Contact with and (suspected) exposure to COVID-19

== ENCOUNTER → 2022-03-19 | Outpatient (CLI) | payer OTHER, MEDICARE ==
[2022-03-19 16:37] LABS: ALBUMIN 3.6 G/DL (3.2-5.2); ALKALINE PHOSPHATASE 105 U/L (46-116); ALT/SGPT < 9 U/L (7.0-40); AST/SGOT 16 U/L (<34); BILIRUBIN,DIRECT < 0.1 MG/DL (<0.4); BILIRUBIN,TOTAL 0.3 MG/DL (0.3-1.2)
== END ==
LOC: M LAB 15:35
PROVIDERS: ATTEND Psychiatry & Neurology Neurology
DX: G70.00 Myasthenia gravis without (acute) exacerbation (principal)

== ENCOUNTER → 2022-04-12 | Outpatient (CLI) | payer OTHER | LOC: M LABSMTC 09:06 | PROVIDERS: ATTEND Anesthesiology | DX: Z01.812 Encounter for preprocedural laboratory examination (principal); Z11.52 Encounter for screening for COVID-19 ==

== ENCOUNTER 2022-04-15 08:52 | Day surgery (SDC) | payer OTHER ==
[~2022-04-15] VITALS: Ht 160 cm; Wt 85.7 kg
[~2022-04-15 08:52] MED LIST changes: +NS 1,000 ML IV ONE
[2022-04-15] MEDS ORDERED: propofoL 200 MG/20 ML VIAL As Ordered ONE (10:03)
[2022-04-15] MEDS ORDERED: LIDOCAINE 2% 100MG/5ML SDV (FOR ANES.) As Ordered ONE (10:03)
[2022-04-15 11:00] VITALS: BP 145/71
== END 2022-04-15 11:18 | disposition home or self-care (01) ==
LOC: M OPP 08:52
PROVIDERS: ATTEND Internal Medicine Gastroenterology
DX: Z12.11 Encounter for screening for malignant neoplasm of colon (principal); Z86.010 Personal history of colon polyps; K63.5 Polyp of colon; Z79.51 Long term (current) use of inhaled steroids; Z79.899 Other long term (current) drug therapy; Z88.5 Allergy status to narcotic agent; Z91.018 Allergy to other foods; K44.9 Diaphragmatic hernia without obstruction or gangrene; G70.00 Myasthenia gravis without (acute) exacerbation; G25.0 Essential tremor; Z90.49 Acquired absence of other specified parts of digestive tract

== ENCOUNTER → 2022-05-28 | Outpatient (CLI) | payer MEDICARE, OTHER ==
[~2022-05-28] MED LIST changes: -NS 1,000 ML IV ONE
[2022-05-28 16:02] LABS: BASO # 0.1 10^3/uL (0.0-0.2); BASO % 0.8 % (0.0-1.0); EOS # 0.1 10^3/uL (0.0-0.5); EOS % 2.2 % (0.0-3.0); HEMATOCRIT 40.4 % (36.0-47.0); HEMOGLOBIN 12.9 g/dl (12.0-15.5); LYMPH # 2.1 10^3/uL (1.5-5.0); LYMPH % 33.4 % (24.0-44.0); MEAN CORPUSCULAR HEMOGLOBIN 28.3 pg (27.0-33.0); MEAN CORPUSCULAR HGB CONC 31.9 g/dl (32.0-36.5); MEAN CORPUSCULAR VOLUME 88.6 fl (80.0-96.0); MONO # 0.8 10^3/uL (0.0-0.8); MONO % 13.1 % (2.0-8.0); NEUTROPHILS # 3.2 10^3/uL (1.5-8.5); NEUTROPHILS % 50.2 % (36.0-66.0); PLATELET COUNT, AUTOMATED 218 10^3/uL (150-450); RED BLOOD COUNT 4.56 10^6/uL (4.00-5.40); WHITE BLOOD COUNT 6.3 10^3/uL (4.0-10.0)
== END ==
LOC: M LAB 15:05
PROVIDERS: ATTEND Psychiatry & Neurology Neurology
DX: G70.00 Myasthenia gravis without (acute) exacerbation (principal); T50.905A Adverse effect of unspecified drugs, medicaments and biological substances, initial encounter

== ENCOUNTER → 2022-06-04 | Outpatient (CLI) | payer MEDICARE, OTHER | LOC: M SOG 08:01 | PROVIDERS: ATTEND Orthopaedic Surgery | DX: M79.641 Pain in right hand (principal) ==

== ENCOUNTER → 2022-09-09 | Outpatient (CLI) | payer MEDICARE, OTHER ==
[2022-09-09 18:10] LABS: BASO # 0.1 10^3/uL (0.0-0.2); BASO % 0.9 % (0.0-1.0); EOS # 0.2 10^3/uL (0.0-0.5); EOS % 2.6 % (0.0-3.0); HEMATOCRIT 38.7 % (36.0-47.0); HEMOGLOBIN 12.4 g/dl (12.0-15.5); LYMPH # 1.9 10^3/uL (1.5-5.0); LYMPH % 32.5 % (24.0-44.0); MEAN CORPUSCULAR HEMOGLOBIN 28.2 pg (27.0-33.0); MEAN CORPUSCULAR VOLUME 88.2 fl (80.0-96.0); MONO # 0.8 10^3/uL (0.0-0.8); MONO % 14.3 % (2.0-8.0); NEUTROPHILS # 2.8 10^3/uL (1.5-8.5); NEUTROPHILS % 49.5 % (36.0-66.0); PLATELET COUNT, AUTOMATED 197 10^3/uL (150-450); RED BLOOD COUNT 4.39 10^6/uL (4.00-5.40); WHITE BLOOD COUNT 5.7 10^3/uL (4.0-10.0)
[2022-09-09 18:31] LABS: ALBUMIN 3.8 G/DL (3.2-5.2); ALKALINE PHOSPHATASE 97 U/L (46-116); ALT/SGPT < 9 U/L (7.0-40); AST/SGOT 13 U/L (<34); BILIRUBIN,DIRECT < 0.1 MG/DL (<0.4); BILIRUBIN,TOTAL 0.3 MG/DL (0.3-1.2); TOTAL PROTEIN 5.9 G/DL (5.7-8.2)
== END ==
LOC: M LAB 16:54
PROVIDERS: ATTEND Psychiatry & Neurology Neurology
DX: G70.00 Myasthenia gravis without (acute) exacerbation (principal); T45.1X5A Adverse effect of antineoplastic and immunosuppressive drugs, initial encounter

== ENCOUNTER → 2023-06-08 | Outpatient (CLI) | payer MEDICARE, OTHER | LOC: M WUC 13:59 | PROVIDERS: ATTEND Internal Medicine | DX: M25.561 Pain in right knee (principal) ==

== ENCOUNTER → 2023-06-29 | Outpatient (CLI) | payer MEDICARE, OTHER ==
[~2023-06-29] VITALS: Ht 160 cm; Wt 78.0 kg
[2023-06-29 07:25] VITALS: BP 164/72; O2SAT 99
[2023-06-29] MEDS: ZOLEDRONIC ACID 5 MG in IV 1 EA IV ONE (08:19)
[2023-06-29 08:50] VITALS: BP 154/74; O2SAT 100
== END ==
LOC: M INFU 07:49
PROVIDERS: ATTEND Internal Medicine
DX: M85.9 Disorder of bone density and structure, unspecified (principal)
CPT/HCPCS: 96413; J3489

== ENCOUNTER → 2023-09-27 | Outpatient (REF) | payer MEDICARE, OTHER | LOC: M LAB REF 16:48 | PROVIDERS: ATTEND Internal Medicine | DX: N39.0 Urinary tract infection, site not specified (principal) ==

== ENCOUNTER → 2024-01-27 | Outpatient (CLI) | payer MEDICARE, OTHER ==
[~2024-01-27] MED LIST changes: -CYCL5TAB PO; +CYCL5TAB4 PO; +EPIN0.055 OU; -EPIN1DRO OU
== END ==
LOC: M WHC 13:16
PROVIDERS: ATTEND Internal Medicine
DX: Z12.31 Encounter for screening mammogram for malignant neoplasm of breast (principal); R92.323 Mammographic fibroglandular density, bilateral breasts

== ENCOUNTER → 2024-07-12 | Outpatient (REF) | payer MEDICARE, OTHER ==
[~2024-07-12] MED LIST changes: -FEXO-117 PO; +FEXO-193 PO; +OMEP-611 PO; -OMEP20TA2 PO; -PRED50TA PO; +PRED50TA57 PO
== END ==
LOC: M LAB REF 14:32
PROVIDERS: ATTEND Internal Medicine
DX: N39.0 Urinary tract infection, site not specified (principal)

== ENCOUNTER → 2024-10-16 | Outpatient (CLI) | payer OTHER, MEDICARE | LOC: M WHC 09:28 | PROVIDERS: ATTEND Psychiatry & Neurology Neurology | DX: R60.0 Localized edema (principal) ==

== ENCOUNTER → 2024-11-23 | Outpatient (CLI) | payer OTHER, MEDICARE | LOC: M PLAIMG 08:48 | PROVIDERS: ATTEND Internal Medicine | DX: M47.814 Spondylosis without myelopathy or radiculopathy, thoracic region (principal); M47.816 Spondylosis without myelopathy or radiculopathy, lumbar region; M43.16 Spondylolisthesis, lumbar region; M47.812 Spondylosis without myelopathy or radiculopathy, cervical region ==

== ENCOUNTER → 2024-12-21 | Outpatient (REF) | payer MEDICARE, OTHER | LOC: M LAB REF 11:45 | PROVIDERS: ATTEND Physician Assistant Medical | DX: R30.0 Dysuria (principal) ==